=== PATIENT | female | born 1955 | race Caucasian/White ===

== ENCOUNTER 2020-05-20 11:59 | Outpatient (REF) | payer MEDICARE, SELFPAY ==
--- NOTE | 2020-05-20 12:04 | MM_ITS ---
EXAMINATION: MM SCREENING DIGITAL BREAST TOMOSYNTHESIS, BILATERAL CLINICAL INFORMATION: Screening. Asymptomatic. The lifetime risk of breast cancer based on the Tyrer-Cuzick Model is 6%. COMPARISON: Mammography: 02/18/2019, 02/05/2019, 01/08/2018, 10/08/2016 TECHNIQUE: Digital breast tomosynthesis is performed in both the craniocaudal and mediolateral oblique views along with computer-aided detection (CAD). Synthesized 2D images are generated from the tomosynthesis. Additional exaggerated right CC view is provided. FINDINGS: There are scattered areas of fibroglandular density (ACR BI-RADS breast composition Category b). There are no significant masses, abnormal calcifications, or other abnormalities. The axilla and skin contours are unremarkable. MM/MM tomosynthesis screening BI IMPRESSION: No mammographic evidence of malignancy. ASSESSMENT: BI-RADS 1: Negative RECOMMENDATION: Routine annual mammography screening. This patient's information was entered into a reminder system with a target due date for their next mammogram.
== END 2020-05-20 12:00 | disposition home or self-care (01) ==
LOC: HO.MAMMO 11:59
PROVIDERS: Visit Provider Internal Medicine
DX: Z12.31 Encounter for screening mammogram for malignant neoplasm of breast (principal)
CPT/HCPCS: 77063; 77067

== ENCOUNTER 2020-06-30 10:29 | Outpatient (REF) | payer MEDICARE, SELFPAY ==
[2020-06-30 13:59] LABS: MANUAL DIFF FLAG NO
[2020-06-30 14:04] LABS: Eosinophils Absolute Auto 0.1 X10*3/uL (0.0-0.4); Eosinophils Percent Auto 2.4 % (0-4); Hematocrit 40.8 % (37-47); Hemoglobin 13.4 g/dl (12.0-16.0); Imm Gran Abs Auto 0.01 X10*3/uL (0.00-0.03); Imm Gran Pct Auto 0.2 % (0.0-0.4); Lymphocytes Absolute Auto 1.2 X10*3/uL (1.2-4.9); Lymphocytes Percent Auto 27.5 % (20-40); Mean Corpuscular HGB Conc 32.8 g/dl (31.0-35.0); Mean Corpuscular Hemoglobin 28.8 pg (27.0-33.0); Mean Corpuscular Volume 87.6 fL (80-98); Mean Platelet Volume 10.3 fL (9.4-12.3); Monocytes Absolute Auto 0.4 X10*3/uL (0.1-1.2); Monocytes Percent Auto 9.1 % (2-11); Neutrophils Absolute Auto 2.5 X10*3/uL (2.0-8.3); Neutrophils Percent Auto 59.8 % (45-73); Platelet Count 302 X10*3/uL (160-400); Red Blood Count 4.66 X10*6/uL (4.20-5.50); Red Cell Distribution Width 14.3 % (11.0-16.0); White Blood Count 4.2 X10*3/uL (4.8-10.8)
[2020-06-30 14:32] LABS: Alanine Aminotransferase 33 U/L (0-31); Albumin Level 4.5 g/dL (3.5-5.0); Alkaline Phosphatase 77 U/L (39-117); Anion Gap 13 (12-20); Aspartate Amino Transferase 31 U/L (5-31); Bilirubin Total 0.8 mg/dL (0.0-1.0); Blood Urea Nitrogen 12 mg/dL (9-16); Calcium 9.4 mg/dL (8.4-10.2); Carbon Dioxide 28 mmol/L (22-29); Chloride 105 mmol/L (96-108); Cholesterol 260 mg/dL; Estimated Glomerular Filt Rate > 60; Glucose Fasting 89 mg/dL (60-99); HDL Cholesterol 74 mg/dL; LDL Cholesterol Calculated 164 mg/dl; Potassium 4.4 mmol/L (3.3-5.1); Sodium 142 mmol/L (135-145); Triglycerides 114 mg/dL
[2020-06-30 14:35] LABS: Glucose Urine UA NEG (NEG); Leukocyte Esterase Urine NEG (NEG); Nitrite Urine NEG (NEG); PH 5.5 (5.0-8.0); Specific Gravity - Urine 1.025 (1.005-1.025); Urine Blood NEG (NEG); Urine Ketones NEG (NEG); Urine Protein NEG (NEG-TRACE)
[2020-06-30 14:38] LABS: Appearance Urine CLEAR; Color Urine YELLOW
[2020-06-30 14:55] LABS: Vitamin D 25-OH Total 31.4 ng/mL (>30)
== END 2020-06-30 10:30 | disposition home or self-care (01) ==
LOC: HO.HMGCLDS 10:29
PROVIDERS: PCP Internal Medicine; Visit Provider Internal Medicine
DX: Z00.00 Encounter for general adult medical examination without abnormal findings (principal); Z13.220 Encounter for screening for lipoid disorders; J30.1 Allergic rhinitis due to pollen; E78.00 Pure hypercholesterolemia, unspecified
CPT/HCPCS: 36415; 80053; 80061; 81003; 82306; 85025

== ENCOUNTER 2020-07-04 14:22 | Outpatient (REF) | payer MEDICARE, SELFPAY ==
--- NOTE | ~2020-07-04 | XR_ITS ---
EXAMINATION: XR CHEST CLINICAL INFORMATION: Fiberglass exposure. COMPARISON: None TECHNIQUE: 2 views of the chest were obtained. FINDINGS: The lungs are well-expanded and clear of acute process. The heart size and pulmonary vascularity is normal. There is mild scoliosis of dorsal spine. No lytic process seen. XR/XR chest 2V IMPRESSION: Unremarkable chest exam.
== END 2020-07-04 14:23 | disposition home or self-care (01) ==
LOC: HO.XRAY 14:22
PROVIDERS: PCP Internal Medicine; Visit Provider Internal Medicine
DX: T65.831A Toxic effect of fiberglass, accidental (unintentional), initial encounter (principal)
CPT/HCPCS: 71046

== ENCOUNTER → 2020-07-12 13:21 | Outpatient (BNVA) | payer MEDICARE, SELFPAY | PROVIDERS: Visit Provider Obstetrics & Gynecology ==

== ENCOUNTER 2020-07-19 13:19 | Outpatient (REF) | payer MEDICARE, SELFPAY ==
--- NOTE | ~2020-07-19 | MM_ITS ---
EXAMINATION: BONE DENSITOMETRY CLINICAL INDICATION: Other specified personal risk factors. COMPARISON: None (current study represents initial baseline exam). TECHNIQUE: Using a Proximus DXA System (software version: 13.1) manufactured by [employer], dual-energy x-ray absorptiometry was performed of the lumbar spine and left hip. The images are of good technical quality. Summary results are attached. FINDINGS: AP SPINE L1-L4: BMD 1.020 g/cm2, Z-score 0.2, T-score -1.3, osteopenia. LEFT FEMUR, NECK: BMD 0.947 g/cm2, Z-score 0.8, T-score -0.7, normal. LEFT FEMUR, TOTAL: BMD 1.098 g/cm2, Z-score 1.9, T-score 0.7, normal. IDENTIFIED RISK FACTORS: Menopause, history of fracture (adult). HISTORY OF FRACTURE: Wrist. MEDICATIONS: Calcium supplements or multivitamin, vitamin D. MM/XR DEXA axial skeleton IMPRESSION: 1. DIAGNOSIS: Osteopenia based on the lowest T-score value of -1.3 in the lumbar spine applying World Health Organization criteria. 2. 10-YEAR FRACTURE RISK PREDICTION, FRAX: Major osteoporotic fracture (clinical spine, forearm, hip or shoulder) 12.9%. Hip fracture 0.8%. 3. Treatment Recommendations: NOF guidelines recommend consideration for treatment in postmenopausal women and men age 50 and older presenting with the following: -A hip or vertebral (clinical or morphometric) fracture. -T-score less than or equal to -2.5 at the femoral neck or spine after appropriate evaluation to exclude secondary causes. -Low bone mass at the hip or spine and a 10-year fracture probability by FRAX of greater than or equal to 3% for hip fracture or greater than or equal to 20% for major osteoporotic fracture based on the [place] adapted WHO algorithm. 4. Other Recommendations: All treatment decisions require clinical judgment and consideration of individual patient factors, including patient preferences, comorbidities, previous drug use, risk factors not captured in the FRAX model (e.g. frailty, falls, vitamin D deficiency, increased bone turnover, interval significant decline in bone density) and possible under or overestimation of fracture risk by FRAX. Additional medical evaluation for secondary cause of low bone mineral density may be appropriate. FUTURE SCAN RECOMMENDATION: People with diagnosed cases of osteoporosis or at high risk for fracture should have regular bone mineral density tests. For patients eligible for Medicare, routine testing is allowed once every 2 years. The testing frequency can be increased to one year for patients who have rapidly progressing disease, those who are receiving or discontinuing medical therapy to restore bone mass, or have additional risk factors.
== END 2020-07-19 13:20 | disposition home or self-care (01) ==
LOC: HO.MAMMO 13:19
PROVIDERS: PCP Internal Medicine; Visit Provider Obstetrics & Gynecology
DX: Z13.820 Encounter for screening for osteoporosis (principal); Z78.0 Asymptomatic menopausal state; Z79.899 Other long term (current) drug therapy
CPT/HCPCS: 77080

== ENCOUNTER 2021-06-20 14:21 | Outpatient (REF) | payer MEDICARE, SELFPAY ==
--- NOTE | ~2021-06-20 | MM_ITS ---
EXAMINATION: MM SCREENING DIGITAL BREAST TOMOSYNTHESIS, BILATERAL CLINICAL INFORMATION: Screening. Asymptomatic. The lifetime risk of breast cancer based on the Tyrer-Cuzick Model is 5%. COMPARISON: Mammography: 05/20/2020, 02/18/2019, 02/05/2019, 01/08/2018 TECHNIQUE: Digital breast tomosynthesis is performed in both the craniocaudal and mediolateral oblique views along with computer-aided detection (CAD). Synthesized 2D images are generated from the tomosynthesis. Additional left MLO view is provided. FINDINGS: There are scattered areas of fibroglandular density (ACR BI-RADS breast composition Category b). There are no significant masses, abnormal calcifications, or other abnormalities. No developing density or interval architectural abnormality. No significant changes. MM/MM tomosynthesis screening BI IMPRESSION: No mammographic evidence of malignancy. ASSESSMENT: BI-RADS 1: Negative RECOMMENDATION: Routine annual mammography screening. This patient's information was entered into a reminder system with a target due date for their next mammogram.
== END 2021-06-20 14:22 | disposition home or self-care (01) ==
LOC: HO.MAMMO 14:21
PROVIDERS: PCP Internal Medicine; Visit Provider Internal Medicine
DX: Z12.31 Encounter for screening mammogram for malignant neoplasm of breast (principal)
CPT/HCPCS: 77063; 77067

== ENCOUNTER → 2021-08-04 12:53 | Outpatient (BNVA) | payer MEDICARE, SELFPAY | PROVIDERS: PCP Internal Medicine; Visit Provider Advanced Practice Midwife | DX: Z01.419 Encounter for gynecological examination (general) (routine) without abnormal findings (principal) ==

== ENCOUNTER 2021-08-09 13:47 | Outpatient (REF) | payer MEDICARE, SELFPAY ==
[2021-08-09 16:25] LABS: MANUAL DIFF FLAG NO
[2021-08-09 16:39] LABS: Appearance Urine CLEAR; Color Urine YELLOW; Glucose Urine UA NEG (NEG); Leukocyte Esterase Urine NEG (NEG); Nitrite Urine NEG (NEG); PH 5.5 (5.0-8.0); Specific Gravity - Urine <= 1.005 (1.005-1.025); Urine Blood NEG (NEG); Urine Ketones NEG (NEG); Urine Protein NEG (NEG-TRACE)
[2021-08-09 16:43] LABS: Basophils Percent Auto 0.5 % (0-2); Eosinophils Absolute Auto 0.1 X10*3/uL (0.0-0.4); Eosinophils Percent Auto 1.5 % (0-4); Hematocrit 44.4 % (37.0-47.0); Imm Gran Abs Auto 0.02 X10*3/uL (0.00-0.03); Imm Gran Pct Auto 0.3 % (0.0-0.4); Lymphocytes Absolute Auto 1.4 X10*3/uL (1.2-4.9); Lymphocytes Percent Auto 24.4 % (20-40); Mean Corpuscular HGB Conc 33.8 g/dl (31.0-35.0); Mean Corpuscular Hemoglobin 30.2 pg (27.0-33.0); Mean Corpuscular Volume 89.5 fL (80.0-98.0); Mean Platelet Volume 10.2 fL (9.4-12.3); Monocytes Absolute Auto 0.4 X10*3/uL (0.1-1.2); Monocytes Percent Auto 7.4 % (2-11); Neutrophils Absolute Auto 3.9 x10*3/uL (2.0-8.3); Neutrophils Percent Auto 65.9 % (45-73); Platelet Count 247 X10*3/uL (160-400); Red Blood Count 4.96 X10*6/uL (4.20-5.50); White Blood Count 5.9 X10*3/uL (4.8-10.8)
[2021-08-09 17:03] LABS: Alanine Aminotransferase 22 U/L (0-31); Albumin Level 4.3 g/dL (3.5-5.0); Alkaline Phosphatase 76 U/L (39-117); Anion Gap 14 (12-20); Aspartate Amino Transferase 25 U/L (5-31); Bilirubin Total 0.9 mg/dL (0.0-1.0); Blood Urea Nitrogen 11 mg/dL (9-16); Calcium 9.9 mg/dL (8.4-10.2); Carbon Dioxide 27 mmol/L (22-29); Chloride 101 mmol/L (96-108); Cholesterol 270 mg/dL; Estimated Glomerular Filt Rate > 60; Glucose Fasting 85 mg/dL (60-99); HDL Cholesterol 70 mg/dL; LDL Cholesterol Calculated 174 mg/dl; Potassium 4.2 mmol/L (3.3-5.1); Sodium 138 mmol/L (135-145); Triglycerides 134 mg/dL
[2021-08-09 17:26] LABS: Vitamin D 25-OH Total 32.5 ng/mL (>30)
== END 2021-08-09 13:48 | disposition home or self-care (01) ==
LOC: HO.HMGCLDS 13:47
PROVIDERS: PCP Internal Medicine; Visit Provider Internal Medicine
DX: Z00.00 Encounter for general adult medical examination without abnormal findings (principal); K21.9 Gastro-esophageal reflux disease without esophagitis; J30.1 Allergic rhinitis due to pollen
CPT/HCPCS: 36415; 80053; 80061; 81003; 82306; 85025

== ENCOUNTER 2021-11-22 10:00 | Outpatient (REF) | payer MEDICARE, SELFPAY ==
[2021-11-22 12:01] LABS: Alanine Aminotransferase 24 U/L (0-31); Aspartate Amino Transferase 26 U/L (5-31); Cholesterol 165 mg/dL; HDL Cholesterol 70 mg/dL; LDL Cholesterol Calculated 78 mg/dl; Triglycerides 89 mg/dL
== END 2021-11-22 10:01 | disposition home or self-care (01) ==
LOC: HO.HMGCLDS 10:00
PROVIDERS: Visit Provider Internal Medicine
DX: I25.10 Atherosclerotic heart disease of native coronary artery without angina pectoris (principal); E78.00 Pure hypercholesterolemia, unspecified; R53.83 Other fatigue
CPT/HCPCS: 36415; 80061; 82550; 84450; 84460

== ENCOUNTER 2022-06-26 14:34 | Outpatient (REF) | payer MEDICARE, SELFPAY ==
--- NOTE | ~2022-06-26 | MM_ITS ---
EXAMINATION: MM SCREENING DIGITAL BREAST TOMOSYNTHESIS, BILATERAL CLINICAL INFORMATION: Screening. Asymptomatic. Status post previous left breast biopsy The lifetime risk of breast cancer based on the Tyrer-Cuzick Model is 5.1%. COMPARISON: Mammography: June 20, 2021 and studies dating back to August 24, 2015 TECHNIQUE: Digital breast tomosynthesis is performed in both the craniocaudal and mediolateral oblique views along with computer-aided detection (CAD). Synthesized 2D images are generated from the tomosynthesis. FINDINGS: There are scattered areas of fibroglandular density (ACR BI-RADS breast composition Category b). There are no significant masses, abnormal calcifications, or other abnormalities. MM/MM tomosynthesis screening BI IMPRESSION: No significant changes from prior exam. ASSESSMENT: BI-RADS 1: Negative RECOMMENDATION: Routine annual mammography screening. This patient's information was entered into a reminder system with a target due date for their next mammogram.
== END 2022-06-26 14:35 | disposition home or self-care (01) ==
LOC: HO.MAMMO 14:34
PROVIDERS: Visit Provider Internal Medicine
DX: Z12.31 Encounter for screening mammogram for malignant neoplasm of breast (principal)
CPT/HCPCS: 77063; 77067

== ENCOUNTER 2022-09-20 10:32 | Outpatient (REF) | payer MEDICARE, SELFPAY ==
[2022-09-20 11:21] LABS: MANUAL DIFF FLAG NO
[2022-09-20 11:38] LABS: Basophils Percent Auto 0.7 % (0-2); Eosinophils Absolute Auto 0.1 X10*3/uL (0.0-0.4); Eosinophils Percent Auto 2.4 % (0-4); Hematocrit 39.5 % (37.0-47.0); Hemoglobin 13.4 g/dl (12.0-16.0); Imm Gran Abs Auto 0.01 X10*3/uL (0.00-0.03); Imm Gran Pct Auto 0.2 % (0.0-0.4); Lymphocytes Percent Auto 23.9 % (20-40); Mean Corpuscular HGB Conc 33.9 g/dl (31.0-35.0); Mean Corpuscular Hemoglobin 30.5 pg (27.0-33.0); Mean Corpuscular Volume 89.8 fL (80.0-98.0); Mean Platelet Volume 9.9 fL (9.4-12.3); Monocytes Absolute Auto 0.3 X10*3/uL (0.1-1.2); Monocytes Percent Auto 7.6 % (2-11); Neutrophils Absolute Auto 2.8 x10*3/uL (2.0-8.3); Neutrophils Percent Auto 65.2 % (45-73); Platelet Count 244 X10*3/uL (160-400); Red Cell Distribution Width 13.3 % (11.0-16.0); White Blood Count 4.2 X10*3/uL (4.8-10.8)
[2022-09-20 12:15] LABS: Alanine Aminotransferase 20 U/L (0-31); Albumin Level 4.2 g/dL (3.5-5.0); Alkaline Phosphatase 68 U/L (39-117); Anion Gap 9 (12-20); Aspartate Amino Transferase 22 U/L (5-31); Bilirubin Total 1.2 mg/dL (0.0-1.0); Blood Urea Nitrogen 16 mg/dL (9-16); Calcium 9.5 mg/dL (8.4-10.2); Carbon Dioxide 30 mmol/L (22-29); Chloride 106 mmol/L (96-108); Cholesterol 160 mg/dL; Estimated Glomerular Filt Rate > 60; Glucose Fasting 87 mg/dL (60-99); HDL Cholesterol 66 mg/dL; LDL Cholesterol Calculated 76 mg/dl; Potassium 4.3 mmol/L (3.3-5.1); Sodium 141 mmol/L (135-145); Total Protein 6.4 g/dL (6.5-8.0); Triglycerides 90 mg/dL
== END 2022-09-20 10:33 | disposition home or self-care (01) ==
LOC: HO.HMGCLDS 10:32
PROVIDERS: PCP Internal Medicine; Visit Provider Internal Medicine
DX: Z00.00 Encounter for general adult medical examination without abnormal findings (principal); M81.0 Age-related osteoporosis without current pathological fracture
CPT/HCPCS: 36415; 80053; 80061; 82306; 85025

== ENCOUNTER 2022-10-16 12:11 | Outpatient (REF) | payer MEDICARE, SELFPAY ==
--- NOTE | ~2022-10-16 | XR_ITS ---
EXAMINATION: 1. RADIOGRAPHS RIGHT KNEE 2. RADIOGRAPHS LEFT KNEE CLINICAL INFORMATION: Pain after trauma COMPARISON: Bilateral knee x-rays 01/23/2016 TECHNIQUE: 4 views of each knee were obtained. FINDINGS: Right knee: No fracture or dislocation. No suprapatellar joint effusion. Joint spaces are well-maintained. Tiny tricompartmental marginal osteophytes. No focal soft tissue swelling of the anterior knee. Left knee: No fracture or dislocation. Tiny suprapatellar joint effusion. Minimal narrowing of the medial joint space height. Small tricompartmental marginal osteophytes. No focal soft tissue swelling of the anterior knee. XR/XR knee RT 4V IMPRESSION: 1. Mild degenerative changes of both knees, slightly more prominent on the left. 2. Tiny left suprapatellar joint effusion.
--- NOTE | ~2022-10-16 | XR_ITS ---
EXAMINATION: 1. RADIOGRAPHS RIGHT KNEE 2. RADIOGRAPHS LEFT KNEE CLINICAL INFORMATION: Pain after trauma COMPARISON: Bilateral knee x-rays 01/23/2016 TECHNIQUE: 4 views of each knee were obtained. FINDINGS: Right knee: No fracture or dislocation. No suprapatellar joint effusion. Joint spaces are well-maintained. Tiny tricompartmental marginal osteophytes. No focal soft tissue swelling of the anterior knee. Left knee: No fracture or dislocation. Tiny suprapatellar joint effusion. Minimal narrowing of the medial joint space height. Small tricompartmental marginal osteophytes. No focal soft tissue swelling of the anterior knee. XR/XR knee LT 4V IMPRESSION: 1. Mild degenerative changes of both knees, slightly more prominent on the left. 2. Tiny left suprapatellar joint effusion.
== END 2022-10-16 12:12 | disposition home or self-care (01) ==
LOC: HO.XRAY 12:11
PROVIDERS: PCP Internal Medicine; Visit Provider Internal Medicine
DX: M25.562 Pain in left knee (principal); M25.561 Pain in right knee
CPT/HCPCS: 73564

== ENCOUNTER 2022-11-15 13:54 | Outpatient (AMB) | payer MEDICARE, SELFPAY ==
--- NOTE | 2022-11-15 13:58 | MHC.OFFVIS ---
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 Scribed for SMITA Galeano by Ellyn Cordon, medical services coordinator, on 11/15/2022 at 2:22 pm EST. Cullet Trucker: Cullet Trucker Present (Luh) Allergies dust,pollen Allergy (Unknown, Uncoded 11/15/22 14:00) unknown Roxicet Allergy (Unknown, Uncoded 11/15/22 14:00) rash HPI HPI Comments History of Present Illness Details She is a postmenopausal woman presenting for annual exam. Doing well with no physician internist concerns. Patient admits she tries to eat a healthy diet including Calcium and Vitamin D. She stays active with exercise. 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 Currently not sexually active. Denies vaginal itching and irritation. Denies family hx of breast, colon and ovarian cancer. Last pap smear 09/18/18 Last mammogram 06/26/22 UTD on colonoscopy. [facility] Medical History (Updated 11/15/22 @ 15:16 by Ellyn Cordon) Basal cell carcinoma (BCC) in situ of skin High cholesterol Osteopenia Surgical History H/O cone biopsy of cervix H/O left wrist surgery History of breast biopsy History of History of knee surgery Social History Alcohol intake: current Alcohol intake frequency: a few times a month Alcohol type: wine Patient Tobacco Use Status: Never used Tobacco Gender identity: Female Female Reproductive History Menstrual Age of Menarche: 11 Total pregnancies: 1 Full term: 1 Date of last pap smear: 09/18/18 (neg pap and hpv) Date of Mammogram: 06/26/22 Physical Exam Vital Signs: Last Vital Signs BP 142/84 H 11/15/22 14:00 BMI result Body Mass Index 26.0 Const General: cooperative, healthy appearing, no acute distress, well developed and alert Orientation/consciousness: patient oriented x3 HEENT Head: Yes normal to inspection Eyes General: appearance normal, both eyes and all related structures Neck Neck: Yes normal visual inspection Thyroid: Thyroid normal Chest Chest palpation & inspection: normal inspection of the chest Breast/axilla inspection: normal inspection of the breasts (no puckering, dimpling, peau de orange, retraction, discharge, masses) Breast/axilla palpation: normal palpation of the breasts Resp Effort & Inspection: normal respiratory effort GI Inspection: Yes normal to inspection Palpation (GI): Soft to palpation (to palpation) Rectal Exam - Female: deferred General: Yes bladder normal to inspection External Female Exam: normal external appearance and normal appearance of the urethra Speculum Exam - Vagina: normal appearance of the vagina, normal palpation and vagina atrophic (moderate) Speculum Exam - Cervix: normal appearance of the cervix and normal palpation Bimanual exam- vagina & uterus: normal palpation and normal palpation Bimanual Exam- Adnexa, other: normal adnexae and no masses Skin General skin exam: no rashes or lesions noted Neuro General: patient oriented x3 Cognition (Neuro): normal cognition Extrem General: Yes normal to inspection Psych Attitude: cooperative Thought process: Normal thought process present Thought content: Normal thought content present Assessment & Plan Assessment & Plan (1) Encounter for well woman exam: Code(s): Z01.419 - Encounter for gynecological examination (general) (routine) without abnormal findings Plan: Discussed: Current recommendations for pap smears per ASCCP guidelines. Breast awareness and periodic self breast exams. Encouraged yearly mammograms. Maintaining a healthy lifestyle including a well balanced diet including Calcium and Vitamin D and routine exercise. Recommend continue use of skin UV protection techniques. Bone density ordered. Contact office with any PMB. All of her questions and concerns were addressed to the best of my ability RTO in 1 year for AG. (2) Osteopenia: Code(s): M85.80 - Other specified disorders of bone density and structure, unspecified site (3) Basal cell carcinoma (BCC) in situ of skin: Code(s): D04.9 - Carcinoma in situ of skin, unspecified Orders: Orders XR DEXA axial skeleton Today M85.80 - Other specified disorders of bone density and structure, unspecified site, Z78.0 - Asymptomatic menopausal state Coding Level of Care Code Est Pt Prev Care >65y(69516) Diagnoses Encounter for well woman exam Z01.419 Osteopenia M85.80 Basal cell carcinoma (BCC) in situ of skin D04.9
[2022-11-15 14:00] VITALS: BP 142/84; BMI 26.0
== END 2022-11-15 14:40 | disposition home or self-care (01) ==
LOC: HO.HWS 13:54
PROVIDERS: PCP Internal Medicine; Visit Provider Advanced Practice Midwife
DX: Z01.419 Encounter for gynecological examination (general) (routine) without abnormal findings (principal); M85.80 Other specified disorders of bone density and structure, unspecified site; D04.9 Carcinoma in situ of skin, unspecified
CPT/HCPCS: 99213; 99397; G0101

== ENCOUNTER → 2022-11-15 13:54 | Outpatient (BNVA) | payer MEDICARE, SELFPAY | PROVIDERS: PCP Internal Medicine; Visit Provider Advanced Practice Midwife ==

== ENCOUNTER 2022-11-23 08:02 | Outpatient (AMB) | payer MEDICARE, SELFPAY ==
[2022-11-23 08:16] VITALS: BMI 26.4
--- NOTE | 2022-11-23 08:16 | MHC.OFFVIS ---
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 Allergies dust,pollen Allergy (Unknown, Uncoded 11/23/22 08:31) unknown Roxicet Allergy (Unknown, Uncoded 11/23/22 08:31) rash Medication List - Last Reconciled 11/23/22 by Hebert Hernandez MD B-complex with vitamin C 1 cap PO DAILY cholecalciferol (vitamin D3) 50 mcg PO DAILY lactobacillus combination no.4 (Probiotic) 3,000 mmu cells PO DAILY loratadine (Allergy Relief (loratadine)) 10 mg PO DAILY multivitamin 1 tab PO DAILY [id number]-fish oil-vit D3 120 mg-180 mg -1,000 unit caps PO rosuvastatin 10 mg PO DAILY PFSH Medical History Basal cell carcinoma (BCC) in situ of skin High cholesterol Osteopenia Surgical History H/O cone biopsy of cervix H/O left wrist surgery History of breast biopsy History of History of knee surgery Social History Alcohol intake: current Alcohol intake frequency: a few times a month Alcohol type: wine Patient Tobacco Use Status: Never used Tobacco Gender identity: Female Female Reproductive History Menstrual Age of Menarche: 11 Physical Exam Vital Signs: BMI result Body Mass Index 26.4 Assessment & Plan Assessment & Plan Orders: Orders XR knee LT 3V Today M17.12 - Unilateral primary osteoarthritis, left knee XR knee RT 3V Today M25.561 - Pain in right knee Coding Diagnoses
--- NOTE | 2022-11-23 08:23 | A.OFFVIS_ITS ---
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 States she slide and fell down at home about 2 months ago. Patient describes how she fell down, reports her knee went the opposite way. Seen at a walk in clinic same day where xays were taken and was told she was negative for fracture. Also seen with her PCP who referred patient to orthopedics. Currently states her knee pain has improved but pain is triggered with stair climbing , pivoting and over use of knee. Hx of torn rt knee meniscus surgery with Dr. Wilkes. She also reports mild intermittent discomfort in her right knee because she has been favoring her left knee. She continues to exercise at the [facility]. She also walks her dog for exercise. Allergies dust,pollen Allergy (Unknown, Uncoded 11/23/22 08:31) unknown Roxicet Allergy (Unknown, Uncoded 11/23/22 08:31) rash Medication List - Last Reconciled 11/23/22 by Hebert Hernandez MD B-complex with vitamin C 1 cap PO DAILY cholecalciferol (vitamin D3) 50 mcg PO DAILY lactobacillus combination no.4 (Probiotic) 3,000 mmu cells PO DAILY loratadine (Allergy Relief (loratadine)) 10 mg PO DAILY multivitamin 1 tab PO DAILY [id number]-fish oil-vit D3 120 mg-180 mg -1,000 unit caps PO rosuvastatin 10 mg PO DAILY [facility] Medical History Basal cell carcinoma (BCC) in situ of skin High cholesterol Osteopenia Surgical History H/O cone biopsy of cervix H/O left wrist surgery History of breast biopsy History of History of knee surgery Social History Alcohol intake: current Alcohol intake frequency: a few times a month Alcohol type: wine Patient Tobacco Use Status: Never used Tobacco Gender identity: Female Female Reproductive History Menstrual Age of Menarche: 11 Physical Exam Vital Signs: BMI result Body Mass Index 26.4 Const Other: Well-nourished well-developed very friendly female awake alert and oriented x3 in no acute distress Extrem Other: Bilateral lower extremity examination shows good capillary refill, no skin lesions noted, normal sensation light touch Bilateral knee examination shows minimal effusions, minimal crepitus with range of motion, tenderness along her medial joint lines, no instability Results Reviewed Results Reviewed: X-rays of the patient's bilateral knees taken on 10/16/2022 show mild diffuse joint space narrowing, no acute bony abnormalities Assessment & Plan Assessment & Plan (1) Right knee pain: Code(s): M25.561 - Pain in right knee Plan: Ms. Cabral presents with intermittent discomfort in both of her knees due to possible medial collateral ligament strain, possible meniscus tearing and early degenerative joint disease. I had a lengthy discussion with the patient regarding the treatment options. At this point the patient's symptoms seem to be improving with activity modifications. We will hold off on a cortisone injection or an MRI. She will follow up with me on an as-needed basis should her symptoms worsen in any way. Feel free to call me at any time should questions regarding her orthopedic management arise. Thank you very much for asking me to see this very friendly patient. I spent 21 minutes in reviewing the patient's records and imaging studies, seeing the patient and documenting in the medical record. (2) Left knee pain: Code(s): M25.562 - Pain in left knee Orders: Orders XR knee LT 3V Today M17.12 - Unilateral primary osteoarthritis, left knee XR knee RT 3V Today M25.561 - Pain in right knee Coding Level of Care Code Est Pt Level 2 (56948) Diagnoses Right knee pain M25.561 Left knee pain M25.562
== END 2022-11-23 08:49 | disposition home or self-care (01) ==
PROVIDERS: PCP Internal Medicine; Visit Provider Orthopaedic Surgery
DX: M25.561 Pain in right knee (principal); M25.562 Pain in left knee
CPT/HCPCS: 99212

== ENCOUNTER 2022-11-23 10:34 | Outpatient (REF) | payer MEDICARE, SELFPAY | END 2022-11-23 10:35 | disposition home or self-care (01) | LOC: HO.HOSX 10:34 | PROVIDERS: Visit Provider Orthopaedic Surgery | DX: M17.12 Unilateral primary osteoarthritis, left knee (principal); M25.561 Pain in right knee; Z79.899 Other long term (current) drug therapy | CPT/HCPCS: 99212 ==

== ENCOUNTER → 2022-11-28 13:30 | Outpatient (BNV) | payer MEDICARE, SELFPAY | PROVIDERS: PCP Internal Medicine; Visit Provider Radiology Diagnostic Radiology | DX: M85.80 Other specified disorders of bone density and structure, unspecified site (principal) | CPT/HCPCS: 77080 ==

== ENCOUNTER 2022-11-28 13:35 | Outpatient (REF) | payer MEDICARE, SELFPAY ==
--- NOTE | ~2022-11-28 | MM_ITS ---
EXAMINATION: BONE DENSITOMETRY CLINICAL INDICATION: Other specified disorders of bone density in structure, unspecified site. COMPARISON: Baseline BD dated 07/19/2020. TECHNIQUE: Using a [employer] DXA System (software version: 13.1) manufactured by [employer], dual-energy x-ray absorptiometry was performed of the lumbar spine and left hip. The images are of good technical quality. Summary results are attached. FINDINGS: LEFT FEMUR, NECK: Current: BMD 0.902 g/cm2, Z-score 0.6, T-score -1.0, normal. Baseline: BMD 0.947 g/cm2. LEFT FEMUR, TOTAL: Current: BMD 1.099 g/cm2, Z-score 2.1, T-score 0.7, normal, 0.1% increase from baseline (<5% change is not significant). Baseline: BMD 1.098 g/cm2. AP SPINE L1-L4: Current: BMD 1.075 g/cm2, Z-score 0.7, T-score -0.9, normal, 5.4% increase from baseline (<5% change is not significant). Baseline: BMD 1.020 g/cm2. IDENTIFIED RISK FACTORS: History of fracture (adult), menopause. HISTORY OF FRACTURE: Wrist. MEDICATIONS: Multivitamin, vitamin D. MM/XR DEXA axial skeleton IMPRESSION: 1. DIAGNOSIS: Normal bone density based on the lowest T-score value of -1.0 in the femoral neck applying World Health Organization criteria. 2. 10-YEAR FRACTURE RISK PREDICTION, FRAX: According to the guidelines, FRAX calculation should only be performed on patients in the osteopenia bone density category. Therefore, FRAX was not performed on this patient. 3. Treatment Recommendations: NOF guidelines recommend consideration for treatment in postmenopausal women and men age 50 and older presenting with the following: -A hip or vertebral (clinical or morphometric) fracture. -T-score less than or equal to -2.5 at the femoral neck or spine after appropriate evaluation to exclude secondary causes. -Low bone mass at the hip or spine and a 10-year fracture probability by FRAX of greater than or equal to 3% for hip fracture or greater than or equal to 20% for major osteoporotic fracture based on the [place] adapted WHO algorithm. 4. Other Recommendations: All treatment decisions require clinical judgment and consideration of individual patient factors, including patient preferences, comorbidities, previous drug use, risk factors not captured in the FRAX model (e.g. frailty, falls, vitamin D deficiency, increased bone turnover, interval significant decline in bone density) and possible under or overestimation of fracture risk by FRAX. FUTURE SCAN RECOMMENDATION: People with diagnosed cases of osteoporosis or at high risk for fracture should have regular bone mineral density tests. For patients eligible for Medicare, routine testing is allowed once every 2 years. The testing frequency can be increased to one year for patients who have rapidly progressing disease, those who are receiving or discontinuing medical therapy to restore bone mass, or have additional risk factors.
== END 2022-11-28 13:36 | disposition home or self-care (01) ==
LOC: HO.MAMMO 13:35
PROVIDERS: PCP Internal Medicine; Visit Provider Advanced Practice Midwife
DX: M85.80 Other specified disorders of bone density and structure, unspecified site (principal); Z78.0 Asymptomatic menopausal state
CPT/HCPCS: 77080

== ENCOUNTER 2023-07-02 12:52 | Outpatient (REF) | payer MEDICARE, SELFPAY | END 2023-07-02 12:53 | disposition home or self-care (01) | LOC: HO.MAMMO 12:52 | PROVIDERS: PCP Internal Medicine; Visit Provider Internal Medicine | DX: Z12.31 Encounter for screening mammogram for malignant neoplasm of breast (principal) | CPT/HCPCS: 77063; 77067 ==

== ENCOUNTER → 2023-07-02 13:00 | Outpatient (BNV) | payer MEDICARE, SELFPAY | PROVIDERS: PCP Internal Medicine; Visit Provider Radiology Diagnostic Radiology | DX: Z12.31 Encounter for screening mammogram for malignant neoplasm of breast (principal) | CPT/HCPCS: 77063; 77067 ==

== ENCOUNTER 2023-08-19 10:01 | Outpatient (REF) | payer MEDICARE, SELFPAY ==
--- NOTE | ~2023-08-19 | XR_ITS ---
EXAMINATION: XR HAND, LEFT CLINICAL INFORMATION: Left hand finger injury. Left hand pain, sprain. COMPARISON: 09/22/2015, 06/14/2015. TECHNIQUE: PA, lateral, and oblique views of the left hand. FINDINGS: Interval removal of previously identified plate and screw fixation from the distal radius. Cystic lucencies in the distal radius likely related to prior instrumentation. Narrowing of the radiocarpal joint with degenerative changes. Scattered cystic lucencies in carpal bones. Bony demineralization redemonstrated. Moderate degenerative changes in the first carpometacarpal joint with joint space narrowing and hypertrophic change. Mild degenerative changes in the second and third DIP joints. XR/XR hand LT min 3V IMPRESSION: 1. Interval removal of previously identified plate and screw fixation from the distal radius. Cystic lucencies in the distal radius are compatible with prior instrumentation. 2. Moderate degenerative changes in the first carpometacarpal joint. 3. Mild degenerative changes in the second and third DIP joints. 4. No displaced fracture appreciated. Recommend follow-up imaging in 10-14 days if fracture is suspected.
[2023-08-19 10:36] LABS: MANUAL DIFF FLAG NO
[2023-08-19 10:54] LABS: Basophils Percent Auto 0.8 % (0-2); Eosinophils Absolute Auto 0.1 X10*3/uL (0.0-0.4); Eosinophils Percent Auto 3.3 % (0-4); Hematocrit 44.8 % (37.0-47.0); Imm Gran Abs Auto 0.01 X10*3/uL (0.00-0.03); Imm Gran Pct Auto 0.3 % (0.0-0.4); Lymphocytes Absolute Auto 1.2 X10*3/uL (1.2-4.9); Lymphocytes Percent Auto 30.5 % (20-40); Mean Corpuscular HGB Conc 33.5 g/dl (31.0-35.0); Mean Corpuscular Hemoglobin 29.9 pg (27.0-33.0); Mean Corpuscular Volume 89.2 fL (80.0-98.0); Mean Platelet Volume 9.5 fL (9.4-12.3); Monocytes Absolute Auto 0.3 X10*3/uL (0.1-1.2); Monocytes Percent Auto 8.5 % (2-11); Neutrophils Absolute Auto 2.3 x10*3/uL (2.0-8.3); Neutrophils Percent Auto 56.6 % (45-73); Platelet Count 236 X10*3/uL (160-400); Red Blood Count 5.02 X10*6/uL (4.20-5.50); Red Cell Distribution Width 13.1 % (11.0-16.0)
[2023-08-19 12:03] LABS: Alanine Aminotransferase 21 U/L (0-31); Albumin Level 4.5 g/dL (3.5-5.0); Alkaline Phosphatase 75 U/L (39-117); Anion Gap 11 (12-20); Aspartate Amino Transferase 23 U/L (5-31); Bilirubin Total 0.8 mg/dL (0.0-1.0); Blood Urea Nitrogen 13 mg/dL (9-16); Calcium 9.8 mg/dL (8.4-10.2); Carbon Dioxide 30 mmol/L (22-29); Chloride 106 mmol/L (96-108); Cholesterol 152 mg/dL (<200); Estimated Glomerular Filt Rate > 60; Glucose Fasting 95 mg/dL (60-99); HDL Cholesterol 74 mg/dL (>40); LDL Cholesterol Calculated 61 mg/dL (<100); Potassium 4.5 mmol/L (3.3-5.1); Sodium 142 mmol/L (135-145); Total Protein 7.1 g/dL (6.5-8.0); Triglycerides 86 mg/dL (<150)
== END 2023-08-19 10:02 | disposition home or self-care (01) ==
LOC: HO.LAB 10:01
PROVIDERS: PCP Internal Medicine; Visit Provider Internal Medicine
DX: E78.00 Pure hypercholesterolemia, unspecified (principal); M79.642 Pain in left hand
CPT/HCPCS: 36415; 73130; 80053; 80061; 85025

== ENCOUNTER 2023-11-20 13:05 | Outpatient (AMB) | payer MEDICARE, SELFPAY ==
--- NOTE | 2023-11-20 13:12 | MHC.OFFVIS ---
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 She is doing well with no concerns. Attempting to eat a healthy diet with calcium and vitamin D and stays active with exercise. Currently sexually active. Denies any vaginal dryness or irritation. STI testing offered; she accepts. Last pap smear; 2019. Last mammogram; . Colonoscopy consult is booked. Denies any family history of breast, ovarian or colon cancer. [facility] Medical History (Updated 11/20/23 @ 13:29 by Ana María Ivy CNM) Osteopenia Basal cell carcinoma (BCC) in situ of skin High cholesterol Surgical History H/O colonoscopy History of breast biopsy H/O left wrist surgery History of knee surgery H/O cone biopsy of cervix History of Social History Alcohol intake: current Alcohol intake frequency: a few times a month Alcohol type: wine Patient Tobacco Use Status: Never used Tobacco Gender identity: Female Female Reproductive History Menstrual Age of Menarche: 11 Menopause type: natural Total pregnancies: 1 Full term: 1 Number of Living Children: 1 Date of last pap smear: 09/18/18 (neg pap and hpv) Date of Mammogram: 07/02/23 ([facility] 1) Date of last Bone Density Screenin11/28/22 Review of Systems Const All systems reviewed & are unremarkable except as noted in HPI and below Reports as per HPI Eyes Reports no additional complaints ENT Reports no additional complaints Card Reports no additional complaints Resp Reports no additional complaints GI Reports as per HPI and Reports no additional complaints Reports as per HPI Musc Reports no additional complaints Skin/Breast Reports as per HPI Neuro Reports no additional complaints Psych Reports no additional complaints Endo Reports no additional complaints Gage/Lymph Reports no additional complaints Aller/Immun Reports no additional complaints Physical Exam Vital Signs: Last Vital Signs BP 124/80 11/20/23 13:14 BMI result Body Mass Index 25.4 Const General: cooperative, healthy appearing, no acute distress, well developed and alert Orientation/consciousness: patient oriented x3 HEENT Head: Yes normal to inspection Eyes General: appearance normal, both eyes and all related structures Neck Neck: Yes normal visual inspection Thyroid: Thyroid normal Chest Chest palpation & inspection: normal inspection of the chest and other (no puckering, dimpling, peau de orange, retraction, discharge, masses) Breast/axilla inspection: normal inspection of the breasts Breast/axilla palpation: normal palpation of the breasts Resp Effort & Inspection: normal respiratory effort GI Inspection: Yes normal to inspection Palpation (GI): Soft to palpation Rectal Exam - Female: deferred General: Yes bladder normal to palpation External Female Exam: normal external appearance and normal appearance of the urethra Speculum Exam - Vagina: normal appearance of the vagina, normal palpation, normal vaginal discharge and vagina atrophic Speculum Exam - Cervix: normal appearance of the cervix and normal palpation Bimanual exam- vagina & uterus: normal bimanual exam, normal palpation, uterine size normal, bladder normal to palpation, normal palpation and non-tender Bimanual Exam- Adnexa, other: no masses Skin General skin exam: no rashes or lesions noted Rashes: no rashes Neuro General: patient oriented x3 Cognition (Neuro): normal cognition Extrem General: Yes normal to inspection Psych Attitude: cooperative Thought process: Normal thought process present Assessment & Plan Assessment & Plan (1) Encounter for well woman exam with routine gynecological exam: Code(s): Z01.419 - Encounter for gynecological examination (general) (routine) without abnormal findings Category: Medical Plan Discussed: Current recommendations for pap smears per ASCCP guidelines. Breast awareness, periodic self breast exams and yearly mammogram. Maintain a healthy lifestyle, well balanced diet including Calcium 1,200 mg and Vitamin D 800 IU daily, and routine exercise. Calcium handout dispensed. Contact the office with any postmenopausal bleeding. Sign up for the patient portal if not already enrolled. Patient verbalizes understanding and agrees to the plan of care. She was given opportunity to ask questions and all questions were answered to the best of my ability. Return to the office 1 year. This note is constructed using voice recognition software. While every effort has been made to ensure accuracy, retail wireless sales consultant errors may have been included. RTO in 1 year for annual numberer and wirer exam. Coding Level of Care Code Est Pt Prev Care >65y(34550) Diagnoses Encounter for well woman exam with routine gynecological exam Z01.419
[2023-11-20 13:14] VITALS: BP 124/80; BMI 25.4
== END 2023-11-20 13:42 | disposition home or self-care (01) ==
PROVIDERS: PCP Internal Medicine; Visit Provider Advanced Practice Midwife
DX: Z01.419 Encounter for gynecological examination (general) (routine) without abnormal findings (principal)
CPT/HCPCS: 99397

== ENCOUNTER → 2023-11-20 13:05 | Outpatient (BNVA) | payer MEDICARE, SELFPAY | PROVIDERS: PCP Internal Medicine; Visit Provider Advanced Practice Midwife ==

== ENCOUNTER 2023-11-26 14:21 | Outpatient (AMB) | payer MEDICARE, SELFPAY ==
--- NOTE | 2023-11-26 14:24 | A.OFFVIS_ITS ---
Vital Signs 3 11/26/23 14:25 Height 5 ft 4 in Weight 149 lb 7.574 oz BMI 25.7 BP 144/79 H Blood Pressure Location Lt brachial Position Sitting Pulse 65 Intake Visit Reasons: colonoscopy screeening Intake Note: Romelia presents to in office visit as a new patient for colonoscopy screening. CC: Patient had a colonoscopy [address] 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 She is referred by elizabeth Potts. P.m. X Allergic rhinitis High cholesterol GERD - pt denies Knee pain Palpitations - pt denies History of colon polyps in brother Osteopenia - pt denies * SURGICAL HISTORY Colonoscopy-2014, Scruggs equaled negative exam Breast biopsy Left wrist surgery - s/p fx x2 Knee surgery Cervical cone biopsy section removal of BCC skin x 2 * ALLERGIES Roxicet - rash * [facility] LABS: Laboratory Tests 08/19/23 10:34 WBC 4.0 L Hgb 15.0 Hct 44.8 Plt Count 236 Estimated GFR > 60 Total Bilirubin 0.8 AST 23 ALT 21 Alkaline Phosphatase 75 TODAY'S VISIT This will be her third colonoscopy. She has used a pediatric scope in the past.She would prefer a pill prep as this is what she used in the past. She denies GERD and only has CIC when she eats too much cheese and she uses prn senna or prunes. There are no prior problems with anesthesia or sedation. She denies any cardiac or respiratory problems. NO ID problems. She thinks her brother had colon polyps; she is unsure. [facility] Medical History (Updated 11/26/23 @ 15:04 by CLEVELAND Galvez) Encounter for well woman exam with routine gynecological exam Osteopenia Basal cell carcinoma (BCC) in situ of skin High cholesterol Surgical History H/O colonoscopy History of breast biopsy H/O left wrist surgery History of knee surgery H/O cone biopsy of cervix History of Family History (Updated 11/26/23 @ 14:34 by Jason Gillis [facility]) Father CHF (congestive heart failure) Mother CHF (congestive heart failure) Heart attack Social History Alcohol intake: current Alcohol intake frequency: a few times a month Alcohol type: wine Patient Tobacco Use Status: Never used Tobacco Gender identity: Female Female Reproductive History Menstrual Age of Menarche: 11 Review of Systems Const Denies fatigue, Denies fever(s), Denies night sweats, Denies poor appetite and Denies weight loss ENT Reports Normal hearing present, Denies dental pain, Denies dysphagia, Denies hearing loss, Denies mouth pain, Denies odynophagia, Denies throat swelling, Denies tongue swelling and Reports other (Dentition adequate) Card Reports no additional complaints Resp Reports no additional complaints GI Details: Denies abdominal pain, Denies melena, Denies bloating, Denies hematochezia, Reports constipation, Denies GI cramping, Denies dysphagia, Denies excessive flatus, Denies early satiety, Denies heartburn, Denies diarrhea, Denies nausea, Denies odynophagia, Denies vomiting and Denies hematemesis Skin/Breast Denies pruritus, Denies lesions, Denies rash and Denies jaundice Neuro Reports Normal hearing present and Denies Abnormal speech present Endo Denies fatigue Aller/Immun Denies throat swelling and Denies tongue swelling Physical Exam Vital Signs: Last Vital Signs Pulse 65 11/26/23 14:25 BP 144/79 H 11/26/23 14:25 BMI result Body Mass Index 25.7 Const General: cooperative, no acute distress, well developed and well groomed Nutritional Appearance: average body habitus and well nourished Orientation/consciousness: oriented to person, oriented to place and oriented to time Limitations: No language barrier HEENT Head: Yes normocephalic and Yes atraumatic Eyes General: appearance normal, both eyes and all related structures Pupils: Equal, round and reactive pupils present Neck Neck: Yes normal visual inspection and Yes no lymphadenopathy Thyroid: Thyroid normal Resp Effort & Inspection: normal respiratory effort and able to speak in complete sentences Auscultation: clear to auscultation bilaterally Cardio Rate: regular rate Rhythm: regular rhythm Heart sounds: Normal, physiologic split S2 sound present Peripheral pulses: radial pulses present and posterior tibial pulses present GI Inspection: No distended and No Abdominal panniculus present Palpation (GI): Soft to palpation, nontender, no guarding, not rigid and No hepatosplenomegaly present Percussion: Yes normal to percussion Auscultation: normal bowel sounds Rectal Exam - Female: deferred Abdomen image: 2 1. surgical scar Skin General skin exam: no rashes or lesions noted, turgor normal, skin not dry, no jaundice, No spider nevi and no striae Rashes: no rashes Nails: normal Neuro General: oriented to person, oriented to place and oriented to time Cranial nerves: Yes Equal, round and reactive pupils present and Yes Normal hearing present Speech: No Abnormal speech present Extrem General: Yes normal to inspection, No clubbing, No cyanosis and No edema Psych Appearance: grossly normal and well kempt Mental Status: mental status grossly normal Speech and movement: Normal speech and movement present Affect: normal affect Attitude: cooperative Thought process: Normal thought process present and not confabulating Thought content: Normal thought content present Insight: Fair insight present (Psych) Judgement: Fair judgement present (Psych) Assessment & Plan Assessment & Plan (1) Family history of polyps in the colon: Comment: Brother Code(s): Z83.719 - Family history of colon polyps, unspecified Category: Medical (2) Tubular adenoma of colon: Code(s): D12.6 - Benign neoplasm of colon, unspecified Category: Medical (3) GERD (gastroesophageal reflux disease): Code(s): K21.9 - Gastro-esophageal reflux disease without esophagitis Category: Medical Plan This will be her third colonoscopy. She has used a pediatric scope in the past.She would prefer a pill prep as this is what she used in the past. She denies GERD and only has CIC when she eats too much cheese and she uses prn senna or prunes. There are no prior problems with anesthesia or sedation. She denies any cardiac or respiratory problems. NO ID problems. She thinks her brother had colon polyps; she is unsure. Orders: Orders 2 Colonoscopy - GI Use Only 11/26/23 Z83.719 - Family history of colon polyps, unspecified Medications: New 2 peg 3350-electrolytes 236-22.74-6.74 -5.86 gram (Golytely) until fecal effluent is clear; do not exceed a total volume of 2,000 mL 240 mL PO Q10M 4,000 mL 0RF 1 day Z12.11 - Encounter for screening for malignant neoplasm of colon bisacodyl (Dulcolax (bisacodyl)) 10 mg (2 x 5 mg) PO BEDTIME 4 tabs 0RF 2 days sod sulf-pot chloride-mag sulf 1.479-0.188- 0.225 gram (Sutab) as directed orally per package directions; PO PER PKG DIR for colonoscopy prep 24 tabs 0RF Z83.719 - Family history of colon polyps, unspecified Coding Level of Care Code New Pt Level 3 (80875) Diagnoses Family history of polyps in the colon Z83.719 Tubular adenoma of colon D12.6 GERD (gastroesophageal reflux disease) K21.9
[2023-11-26 14:25] VITALS: BP 144/79; PULSE 65; BMI 25.7
== END 2023-11-26 15:24 | disposition home or self-care (01) ==
PROVIDERS: PCP Internal Medicine; Visit Provider Nurse Practitioner
DX: Z83.719 Family history of colon polyps, unspecified (principal); D12.6 Benign neoplasm of colon, unspecified; K21.9 Gastro-esophageal reflux disease without esophagitis
CPT/HCPCS: 99203

== ENCOUNTER → 2023-11-26 14:21 | Outpatient (BNVA) | payer MEDICARE, SELFPAY | PROVIDERS: PCP Internal Medicine; Visit Provider Nurse Practitioner | DX: Z01.818 Encounter for other preprocedural examination (principal); K59.04 Chronic idiopathic constipation; D12.6 Benign neoplasm of colon, unspecified; K21.9 Gastro-esophageal reflux disease without esophagitis; Z83.719 Family history of colon polyps, unspecified | CPT/HCPCS: 99202 ==

== ENCOUNTER 2024-04-09 09:25 | Day surgery (SDC) | payer MEDICARE, SELFPAY ==
[2024-04-07 10:08] VITALS: BMI 25.6
--- NOTE | 2024-04-08 09:41 | P.CONAN_ITS ---
Documented by User: Radha Davidson NP 04/08/24 09:42 HPI - Anesthesia Eval Consult details Narrative: 68yo F for Colonoscopy PMFSH Active Problems Active Problems: All Active Problems Family history of polyps in the colon (Acute) Palpitations (Acute) GERD (gastroesophageal reflux disease) (Acute) Allergic rhinitis (Acute) Left knee pain (Acute) Right knee pain (Acute) Arthritis of left knee (Acute) Osteopenia (Acute) Past Medical History Medical History Encounter for well woman exam with routine gynecological exam Osteopenia Basal cell carcinoma (BCC) in situ of skin High cholesterol Family History Family History Father CHF (congestive heart failure) Mother CHF (congestive heart failure) Heart attack Surgical History Surgical History H/O colonoscopy History of breast biopsy H/O left wrist surgery History of knee surgery H/O cone biopsy of cervix History of Social History Social History Are you a primary care assistant to a significant other at home: No Do you presently have visiting nurse or other home services: No Alcohol intake: current Alcohol intake frequency: a few times a month Alcohol type: wine Patient Tobacco Use Status: Never used Tobacco Have you been hit, kicked, punched, or otherwise hurt by someone within the past year? If so, by whom?: No Are you DNR?: No Advance Directives: No Advance Directives Information Provided: Yes Recently lost weight without trying: No Nutrition Risks: No Nutritional Risk Gender identity: Female Meds Allergies Allergy/AdvReac Type Severity Reaction Status Date / Time acetaminophen [From Roxicet] Allergy Severe Rash Verified 04/09/24 09:52 house dust Allergy Severe Unknown Verified 04/09/24 09:52 oxycodone [From Roxicet] Allergy Severe Rash Verified 04/09/24 09:52 dust,pollen Allergy Unknown unknown Uncoded 04/09/24 09:52 enviromental allergies Allergy Unknown Unknown Uncoded 04/09/24 09:52 Home Medications ?Medication ?Instructions ?Recorded ?Confirmed ?Last Taken ?Type cholecalciferol (vitamin D3) 50 50 mcg PO DAILY 07/12/20 04/09/24 Unknown History mcg (2,000 unit) capsule loratadine 10 mg tablet (Allergy 10 mg PO DAILY 07/12/20 04/09/24 Unknown History Relief (loratadine)) multivitamin 1 tab PO DAILY 07/12/20 04/09/24 Unknown History omega-3-dha 120 mg-epa 180 mg-fish cap PO 07/12/20 11/23/22 04/05/24 History oil-vitamin D3 1,000 unit capsule lactobacillus combination no.4 3 3,000 mmu cells PO DAILY 11/15/22 04/09/24 Unknown History billion cell capsule (Probiotic) rosuvastatin 10 mg tablet 10 mg PO DAILY 11/15/22 04/09/24 Unknown History vitamin B complex 1 tab PO DAILY 11/20/23 04/09/24 Unknown History Exam Height,Weight and Vital Signs: Height 5 ft 4 in Weight 67.585 kg Assessment and Plan Assessment Anesthesia Assessment: Chart Reviewed Documented by User: Jamila Maciel MD 04/09/24 10:06 [facility] Past Medical History Medical History Encounter for well woman exam with routine gynecological exam Osteopenia Basal cell carcinoma (BCC) in situ of skin High cholesterol Family History Family History Father CHF (congestive heart failure) Mother CHF (congestive heart failure) Heart attack Family history of problems with anesthesia: No Surgical History Surgical History H/O colonoscopy History of breast biopsy H/O left wrist surgery History of knee surgery H/O cone biopsy of cervix History of History of Problems with Anesthesia: No Social History Social History Are you a primary care assistant to a significant other at home: No Do you presently have visiting nurse or other home services: No Alcohol intake: current Alcohol intake frequency: a few times a month Alcohol type: wine Patient Tobacco Use Status: Never used Tobacco Have you been hit, kicked, punched, or otherwise hurt by someone within the past year? If so, by whom?: No Are you DNR?: No Advance Directives: No Advance Directives Information Provided: Yes Recently lost weight without trying: No Nutrition Risks: No Nutritional Risk Gender identity: Female Meds Allergies Allergy/AdvReac Type Severity Reaction Status Date / Time acetaminophen [From Roxicet] Allergy Severe Rash Verified 04/09/24 09:52 house dust Allergy Severe Unknown Verified 04/09/24 09:52 oxycodone [From Roxicet] Allergy Severe Rash Verified 04/09/24 09:52 dust,pollen Allergy Unknown unknown Uncoded 04/09/24 09:52 enviromental allergies Allergy Unknown Unknown Uncoded 04/09/24 09:52 Home Medications ?Medication ?Instructions ?Recorded ?Confirmed ?Last Taken ?Type cholecalciferol (vitamin D3) 50 50 mcg PO DAILY 07/12/20 04/09/24 Unknown History mcg (2,000 unit) capsule loratadine 10 mg tablet (Allergy 10 mg PO DAILY 07/12/20 04/09/24 Unknown History Relief (loratadine)) multivitamin 1 tab PO DAILY 07/12/20 04/09/24 Unknown History omega-3-dha 120 mg-epa 180 mg-fish cap PO 07/12/20 11/23/22 04/05/24 History oil-vitamin D3 1,000 unit capsule lactobacillus combination no.4 3 3,000 mmu cells PO DAILY 11/15/22 04/09/24 Unknown History billion cell capsule (Probiotic) rosuvastatin 10 mg tablet 10 mg PO DAILY 11/15/22 04/09/24 Unknown History vitamin B complex 1 tab PO DAILY 11/20/23 04/09/24 Unknown History Exam Airway Mallampati Class: II TM Dist: >3cm Neck ROM: Full Heart: rrr Lungs: cta Assessment and Plan Assessment Anesthesia Assessment: Anesthesia Plan Discussed Final Anesthetic Review Family History of Problems with Anesthesia: No History of Problems with Anesthesia: No NPO: Yes ASA Class: II Final Preanesthetic Review: No Changes in Pt Med Stat, Meds/Allgs Chart Reviewed, Consent Obtained/Reviewed and Anes Risks/Benef Reviewed Patient Risk: Low Anesthetic Plan Anesthetic Plan: MAC: Disposition: Standard PACU
[2024-04-09 09:50] VITALS: BMI 25.2
[2024-04-09] MEDS: Lactated Ringers 1,000 ML 100 ML IVCONT (09:57)
--- NOTE | 2024-04-09 10:11 | MHC.SHP ---
Pre-Procedural Eval Section A - 24 Hr Update-Section A only Date of Service: 04/09/24 Section B - Complete if H&P > 30 days Chief Complaint: Family history of colon polyps, unspecified Details of Present Illness: Encounter for well woman exam with routine gynecological exam Osteopenia Basal cell carcinoma (BCC) in situ of skin High cholesterol Surgical History H/O colonoscopy History of breast biopsy H/O left wrist surgery History of knee surgery H/O cone biopsy of cervix History of Present Medications: see Short Stay Collaborative assessment Allergies: Allergies Allergy/AdvReac Type Severity Reaction Status Date / Time acetaminophen [From Roxicet] Allergy Severe Rash Verified 04/09/24 09:52 house dust Allergy Severe Unknown Verified 04/09/24 09:52 oxycodone [From Roxicet] Allergy Severe Rash Verified 04/09/24 09:52 dust,pollen Allergy Unknown unknown Uncoded 04/09/24 09:52 enviromental allergies Allergy Unknown Unknown Uncoded 04/09/24 09:52 Review of Systems Review of Systems Comment: Ten point ROS negative Exam Exam Comment: Gen appear: No acute distress HEENT: no icterus Chest: No overt resp distress Abd: soft, nontender, nondistended Psych: Stable affect, answering questions appropriately Neuro: A/Ox3 noted to move all extremities spontaneously Ext: no peripheral edema Plan Diagnosis/Plan: Unchanged I have reviewed the history and physical and performed a pertinent physical examination on my patient. No changes have occurred unless specified. Time Spent With Patient Time: Total time managing care of this patient today ____ minutes.
[2024-04-09 10:16] VITALS: BP 135/74; PULSE 84; RESP 18; TEMP 36.6; O2SAT 97
[2024-04-09 12:25] VITALS: BP 111/53; PULSE 62; RESP 17; TEMP 36.9; O2SAT 98
--- NOTE | 2024-04-09 12:35 | P.OPN-COLO_ITS ---
Colonoscopy Operative Note Operative Note Date of Service: 04/09/24 Narrative: Procedure: Colonoscopy Indication: Screening, fam hx of polyps Endoscopist: Shala Oconnor MD Anesthesia Provider: Rajni Hui CRNA Anesthesia type: MAC Instrument: Olympus [id number]-[id number] Consent: Indication, risks vs benefits, and alternatives were discussed with the patient who gave written informed consent to proceed. EKG, pulse, pulse oximetry and blood pressure were monitored throughout the procedure. Please see anesthesia flowsheet. Procedure: The patient was brought to the procedure room and placed in the left lateral decubitus position. IV medications were administered by the anesthesia provider in attendance. A digital rectal exam was performed which was abnormal for external hemorrhoids. A distal attachment cap was affixed to the tip of the colonoscope which was then inserted through the anus and advanced through the colon to the cecum at cm,and terminal ileum. Appendiceal orifice and ileocecal valve were identified. Mucosa was carefully examined under high definition white light as the instrument was slowly withdrawn in a retrograde panoramic fashion. Retroflexion was performed in rectum. The procedure was not difficult. There were no immediate obvious complications. The quality of the prep was BBPS: 3+2+3 = adequate Withdrawal time 7 minutes. Limitations: No limitations. Findings: Mucosa: Normal to cecum and terminal ileum. Protruding lesions: * Medium internal hemorrhoids without stigmata of recent bleeding. Excavated lesions: * Mild to moderate diverticulosis of left sided colon. Impression: 1. Normal colon and terminal ileum mucosa 2. Internal and external hemorrhoids 3. Diverticulosis Recommendations: - Repeat colonoscopy can be considered in 10 years if patient in good health, unless brother has hx of advanced polyps in which case she should return in 5 years.
[2024-04-09 12:40] VITALS: BP 116/63; PULSE 0; RESP 20; TEMP 36.2; O2SAT 99
--- OUTSIDE RECORDS SUMMARY | 2024-04-15 00:53 | XMS_ITS | Patient Health Record ---
[facility] Address [address] [facility] [address] [place] [address] Care Team Providers Care Song And Dance Performer Name Role Phone Jesus Potts MD Primary Care Provider Unavaila ble Black, Diana Unavailable [phone] Allergies Allergen (clinical drug ingredient) Drug/Non Drug Allergy documented on EMR Reaction Allergy Type Onset Date Status Roxicet Unknown Drug Allergy Active Seasonale Unknown Drug Allergy Active Reason For Referral No Information Medications Medication SIG (Take, Route, Frequency, Duration) Notes Start Date End Date Status Fish Oil Active Rosuvastatin Calcium 10 MG 1 tablet Orally Once a day for 30 day(s) Active Loratadine 10 MG 1 tablet Orally Once a day for 30 day(s) Active Vitamin B Complex Ac tive Probiotic Active [place] 3 Not-Taking Vitamin D Active Multivitamin Active Immunizations Vaccine Route Administration Date Status Comme nts COVID-19 Moderna Vaccine Unknown 06/20/2020 Administered Second Dose: 07/18/2020 Social History Tobacco Use: Social History Observation Description Date Details (start date - stop date) Never Smoker NA - NA Tobacco Use/Smoking Question Answer Notes Are you a: nonsmoker Alcohol Screen Question Answer Notes Did you have a drink containing alcohol in the p ast year? Yes Points 0 Interpretation Negative Tobacco use other than smoking: Question Answer Notes Are you an other tobacco user? No Problems Problem Type SNOMED Code ICD Code Onset Dates Problem Status W/U Status Risk Notes Problem Acquired hallux valgus (62724898) Hallux valgus (acquired), left foot (M20.12) Active confirmed Problem Acquired hallux valgus (33559789) Hallux valgus (acquired), right foot (M20.11) Active confirmed Plan Of Treatment Pending Test Test Name Order Date X ray : Foot, right 3V 01/01/2022 [id number] NAIL, 1-01/01/2022 [id number] Destruction, -01/01/2022 Insurance Providers Payer Name Payer Address Payer Phone Subscriber Number Group Number Insured Name Patient Relationship to Insured Coverage Start Date Coverage End Date [facility] [address] [place] [address] [phone] [id number] Romelia Cabral Self - patient is the insured Medical (General) History Medical History History ICD Code Cancer Seasonal allergies Surgical History Surgery Date(Month/Year) torn meniscus 06/2017 Broken wrist 06/2015 remove metal plate 10/2017
== END 2024-04-09 13:06 | disposition home or self-care (01) ==
PROVIDERS: PCP Internal Medicine; Visit Provider Internal Medicine
PROC: 0DJD8ZZ Inspection of Lower Intestinal Tract, Via Natural or Artificial Opening Endoscopic (ICD-10-PCS; CPT 45378; principal; 2024-04-09 11:10)
DX: Z12.11 Encounter for screening for malignant neoplasm of colon (principal); Z83.719 Family history of colon polyps, unspecified; K57.30 Diverticulosis of large intestine without perforation or abscess without bleeding; K64.8 Other hemorrhoids; K64.4 Residual hemorrhoidal skin tags; Z98.890 Other specified postprocedural states
CPT/HCPCS: G0105; J2003; J2704

== ENCOUNTER → 2024-04-09 09:25 | Outpatient (BNV) | payer MEDICARE, SELFPAY | PROVIDERS: PCP Internal Medicine; Visit Provider Internal Medicine | DX: Z12.11 Encounter for screening for malignant neoplasm of colon (principal); Z83.719 Family history of colon polyps, unspecified; K57.30 Diverticulosis of large intestine without perforation or abscess without bleeding; K64.8 Other hemorrhoids | CPT/HCPCS: G0105 ==

== ENCOUNTER 2024-07-08 13:00 | Outpatient (REF) | payer MEDICARE, SELFPAY ==
--- OUTSIDE RECORDS SUMMARY | 2024-07-08 15:24 | XMS_ITS | Patient Health Record ---
[facility] Address [address] [facility] [place] [address] Care Team Providers Care Quality Assurance Advisor Name Role Phone Jesus Potts MD Primary Care Provider Unavaila ble Black, Diana Unavailable [phone] Allergies Allergen (clinical drug ingredient) Drug/Non Drug [...] Vitamin B Complex Ac tive Probiotic Active [place] 3 Not-Taking Vitamin D Active Multivitamin Active [...] Status Risk Notes Problem Acquired hallux valgus (00590700) Hallux valgus (acquired), left foot (M20.12) Active confirmed Problem Acquired hallux valgus (33813571) Hallux valgus (acquired), right foot (M20.11) Active confirmed Plan Of Treatment Pending Test Test Name Order Date X ray : Foot, right 3V 01/01/2022 [id number] NAIL, 1-01/01/2022 [id number] Destruction, -01/01/2022 Insurance Providers Payer Name Payer Address Payer Phone Subscriber Number Group Number Insured Name Patient Relationship to Insured Coverage Start Date Coverage End Date [facility] [address] [place] [address] [phone] [id number] Romelia Cabral Self - patient is the insured Medical (General) History Medical History History ICD Code Cancer Seasonal allergies Surgical History Surgery Date(Month/Year) torn meniscus 06/2017 Broken wrist 06/2015 remove metal plate 10/2017
== END 2024-07-08 13:01 | disposition home or self-care (01) ==
LOC: HO.MAMMO 13:00
PROVIDERS: PCP Internal Medicine; Visit Provider Internal Medicine
DX: Z12.31 Encounter for screening mammogram for malignant neoplasm of breast (principal)
CPT/HCPCS: 77063; 77067

== ENCOUNTER → 2024-07-08 13:00 | Outpatient (BNV) | payer MEDICARE, SELFPAY | PROVIDERS: PCP Internal Medicine; Visit Provider Internal Medicine | DX: Z12.31 Encounter for screening mammogram for malignant neoplasm of breast (principal) | CPT/HCPCS: 77063; 77067 ==

== ENCOUNTER 2024-07-27 13:40 | Outpatient (REF) | payer MEDICARE, SELFPAY ==
[2024-07-27 16:12] LABS: MANUAL DIFF FLAG NO
[2024-07-27 16:26] LABS: Basophils Percent Auto 0.5 % (0-2); Eosinophils Absolute Auto 0.2 X10*3/uL (0.0-0.4); Hematocrit 39.8 % (37.0-47.0); Hemoglobin 13.5 g/dl (12.0-16.0); Imm Gran Abs Auto 0.01 X10*3/uL (0.00-0.03); Imm Gran Pct Auto 0.2 % (0.0-0.4); Lymphocytes Absolute Auto 1.3 X10*3/uL (1.2-4.9); Lymphocytes Percent Auto 21.1 % (20-40); Mean Corpuscular HGB Conc 33.9 g/dl (31.0-35.0); Mean Corpuscular Hemoglobin 29.9 pg (27.0-33.0); Mean Corpuscular Volume 88.2 fL (80.0-98.0); Mean Platelet Volume 10.2 fL (9.4-12.3); Monocytes Absolute Auto 0.5 X10*3/uL (0.1-1.2); Monocytes Percent Auto 7.6 % (2-11); Neutrophils Absolute Auto 4.3 x10*3/uL (2.0-8.3); Neutrophils Percent Auto 67.6 % (45-73); Platelet Count 276 X10*3/uL (160-400); Red Blood Count 4.51 X10*6/uL (4.20-5.50); Red Cell Distribution Width 13.8 % (11.0-16.0); White Blood Count 6.3 X10*3/uL (4.8-10.8)
[2024-07-27 16:31] LABS: Appearance Urine Clear; Color Urine Yellow; Glucose Urine UA Negative (Negative); Leukocyte Esterase Urine Negative (Negative); Nitrite Urine Negative (Negative); PH 5.5 (5.0-9.0); Urine Blood Negative (Negative); Urine Ketones Trace mg/dL (Negative); Urine Protein Negative (Neg-Trace)
[2024-07-27 16:56] LABS: Alanine Aminotransferase 25 U/L (0-31); Albumin Level 4.1 g/dL (3.5-5.0); Anion Gap 10 (12-20); Aspartate Amino Transferase 31 U/L (5-31); Bilirubin Total 0.9 mg/dL (0.0-1.0); Blood Urea Nitrogen 15 mg/dL (9-16); Calcium 9.4 mg/dL (8.4-10.2); Carbon Dioxide 27 mmol/L (22-29); Chloride 107 mmol/L (96-108); Cholesterol 150 mg/dL (<200); Estimated Glomerular Filt Rate > 60; Glucose Fasting 83 mg/dL (60-99); HDL Cholesterol 68 mg/dL (>40); LDL Cholesterol Calculated 66 mg/dL (<100); Potassium 4.4 mmol/L (3.3-5.1); Sodium 140 mmol/L (135-145); Total Protein 6.6 g/dL (6.5-8.0); Triglycerides 81 mg/dL (<150)
[2024-07-27 17:02] LABS: Alkaline Phosphatase 68 U/L (39-117); Vitamin D 25-OH Total 52.2 ng/mL (>30)
== END 2024-07-27 13:41 | disposition home or self-care (01) ==
LOC: HO.HMGCLDS 13:40
PROVIDERS: PCP Internal Medicine; Visit Provider Internal Medicine
DX: Z00.00 Encounter for general adult medical examination without abnormal findings (principal); E78.00 Pure hypercholesterolemia, unspecified; K21.9 Gastro-esophageal reflux disease without esophagitis
CPT/HCPCS: 36415; 80053; 80061; 81003; 82306; 85025

== ENCOUNTER 2024-09-04 13:11 | Outpatient (AMB) | payer MEDICARE, SELFPAY ==
[2024-09-04 13:19] VITALS: BP 122/80; PULSE 62; TEMP 36.6; O2SAT 99; BMI 26.1
--- NOTE | 2024-09-04 13:19 | A.OFFPC_ITS ---
Vital Signs 09/04/24 13:19 Height 5 ft 4 in Weight 68.946 kg BMI 26.1 BP 122/80 Blood Pressure Location Lt brachial Position Sitting Pulse 62 Pulse Source Pulse Oximeter Temp 97.8 F Temp Source Axillary Pulse Oximetry (%) 99 Oxygen Delivery Method Room Air Intake Visit Reasons: Routine Blood Typer Required: No Accompanied by: Self / Same As Patient Allergies acetaminophen [From Roxicet] Allergy (Severe, Verified 09/04/24 13:19) Rash house dust Allergy (Severe, Verified 09/04/24 13:19) Unknown oxycodone [From Roxicet] Allergy (Severe, Verified 09/04/24 13:19) Rash dust,pollen Allergy (Unknown, Uncoded 04/09/24 09:52) unknown enviromental allergies Allergy (Unknown, Uncoded 04/09/24 09:52) Unknown Tobacco use date assessed: 09/04/24 Fall risk assessment: 1 Fall in past year Last assessed Fall Risk: 09/04/24 Dental Screening Dental Screen Date: 09/04/24 Did you have a dental visit in the last 12 months?: Yes Did you have a dental problem in the last 6 months where you did not have access to dental care?: No HPI HPI Comments History of Present Illness Details History of Present Illness The patient is a 68-year-old female presenting with a routine follow-up visit. She manages hyperlipidemia with rosuvastatin and has resolved osteopenia attributed to her consistent exercise regimen, particularly weight training. The patient's cataracts were noted during evaluation, yet no surgical action is required at this time. She reported occasional headaches potentially linked to neck positioning. The patient has experienced longstanding tinnitus, likely from past concert attendance, and has dealt with joint pain, including postoperative recovery from a meniscus tear, without needing further surgery. Mild constipation is occasional and controlled by dietary adjustment. Her current dermatological management includes topical treatment for athlete's foot. She notes a recurring issue with hammertoe but has not opted for surgical correction. There are no significant changes in her overall health. Health Maintenance - Hyperlipidemia managed with rosuvastat in - Regular exercise routine: cardio and r esistance training - Mammogram in July: benign findings - Colonoscopy in July: no abnormalities - Up-to-date on women?s health exams, in cluding mammograms and routine gynecological visits - Active lifestyle for prevention of ost eoporosis - Diet including fish, eggs, nuts, and g rains; minimal red meat - Vitamins and supplements: probiotics, vitamin D - No tobacco use, limited alcohol consum ption - Regular sunscreen and foot hygiene for athlete's foot prevention Social History - Diet: Minimal red meat, includes fish, nuts, grains, and probiotic intake - Exercise: Regular weight and cardio cl asses, with walking 3-5 miles daily - Lifestyle: Active with attention to [employer] health - Alcohol: Occasional consumption, predo minantly social - Tobacco: Non-smoker - Occupation: Not discussed - Housing: Not discussed - Family Status: Not discussed Review of Systems - Eyes: Reports developing cataracts - Ears/Nose/Throat: Reports tinnitus - Cardiovascular: Denies chest pain - Respiratory: Denies shortness of breat h - Gastrointestinal: Reports occasional c onstipation; denies GERD - Genitourinary: Reports up-to-date wome n?s health exams - Musculoskeletal: Reports joint pain; h istory of knee surgery - Neurological: Reports occasional heada ches; denies dizziness - Dermatological: Reports athlete's foot ; history of hammertoe Physical Exam General: Cooperative, healthy appearing, comfortable, no acute distress and well developed Orientation: Patient oriented x3 Limitations: No limitations Head: Normal to inspection Ears: Hearing grossly normal bilaterally, tinnitus noted Nose: Normal external nose present Face and sinus: Normal facial exam Eyes: Appearance normal, both eyes and all related structures, cataracts forming Neck: Normal visual inspection and Yes full ROM, occasional pain related to neck movement Respiratory: Normal respiratory effort and able to speak in complete sentences. Clear to auscultation bilaterally Cardiovascular: Regular rate and rhythm. Normal S1 and S2 GI: Normal to inspection. Soft to palpation and nontender, occasional constipation related to diet Skin: No rashes or lesions noted, athlete's foot and thickening/wolf of skin on back noted Neuro: Patient oriented x3, no numbness, tingling, or weakness in arms Extremities: Normal to inspection, arthritis in big toe of right foot, orthotics used for knee support Results - Labs: Normal blood work including kidn ey function, liver enzymes, and cholesterol levels - Imaging: Mammogram showed benign findi ngs; colonoscopy showed no abnormalities Plan I will continue managing her hyperlipidemia with rosuvastatin and encourage commitment to a balanced diet and regular exercise. Her osteopenia shows improvement thanks to her active lifestyle. Follow-up on cataracts is advised with her septic pump truck driver to monitor progression. Continued conservative treatment for athlete's foot is advised. Ophthalmic, gastroenterological, and musculoskeletal health will be maintained with current strategies, with further interventions considered only as symptoms dictate or routine follow-ups suggest. Discussion regarding healthcare proxy and advanced directives was initiated. Patient was informed and verbally consented to the use of an ambient scribe for clinic note documentation during this visit. Discussion Notes During the visit, we reviewed her progress regarding osteopenia, emphasizing the benefits of her active lifestyle and resistance training in reversing the diagnosis. We addressed the management of her hyperlipidemia with ongoing rosuvastatin use, discussing its role in maintaining optimal cholesterol levels. The importance of cataract monitoring was highlighted in coordination with her septic pump truck driver. I discussed strategies for managing symptoms of tinnitus and occasional neck- related headaches, including staying active. For her dermatological condition, we highlighted antifungal management for athlete's foot. We initiated a conversation regarding healthcare management documents, encouraging her to consider establishing a healthcare proxy and advance directives. Follow-up care locations, such as the [facility] for exercise, were suggested to remain uninterrupted. Documentation needs regarding healthcare forms are acknowledged without immediate requirement. Patient Instructions - Continue taking rosuvastatin as prescr ibed - Maintain active lifestyle including ca rdio and resistance exercises - Follow-up with an septic pump truck driver rega rding cataracts as advised - Use antifungal treatments for athlete' s foot; maintain foot hygiene - Consider establishing a healthcare pro xy and advance directive - Keep up with regular health screenings and dietary habits - Avoid smoking and limit alcohol to soc ial occasions only PFSH Medical History (Updated 09/04/24 @ 17:15 by AMBROCIO Clemente) Encounter for well woman exam with routine gynecological exam Osteopenia Basal cell carcinoma (BCC) in situ of skin High cholesterol Surgical History H/O colonoscopy (~04/09/24) History of breast biopsy H/O left wrist surgery History of knee surgery H/O cone biopsy of cervix History of Family History (Updated 09/04/24 @ 13:32 by Jocelyne Riggins MA) Father CHF (congestive heart failure) Mother CHF (congestive heart failure) Heart attack Social History Housing: House Are you a primary group care worker to a significant other at home: No Do you presently have visiting nurse or other home services: No Alcohol intake: current Alcohol intake frequency: a few times a month Alcohol type: wine Patient Tobacco Use Status: Never used Tobacco e-Cigarette/Vaping Use: Never Used service: No Current occupational status: employed Gender identity: Female Cognitive needs: No Hearing needs: No Vision needs: Yes (reading glasses) Female Reproductive History Menstrual Age of Menarche: 11 Questionnaire PHQ-9 Over the last 2 weeks, how often have you been bothered by any of the following problems? 1. Little interest or pleasure in doing things: not at all 2. Feeling down, depressed, or hopeless: not at all 3. Trouble falling or staying asleep, or sleeping too much: not at all 4. Feeling tired or having little energy: not at all 5. Poor appetite or overeating: not at all 6. Feeling bad about yourself - or that you are a failure or have let yourself or your family down: not at all 7. Trouble concentrating on things, such as reading the newspaper or watching television: not at all 8. Moving or speaking so slowly that other people could have noticed. Or the opposite - being so fidgety or restless that you have been moving around a lot more than usual: not at all 9. Thoughts that you would be better off or of hurting yourself in some way: not at all Total score: 0 Source: Developed by Drs. Dwayne Evans, Tomasa Brady, Rajeev Chacko and colleagues, with an educational modesto from [employer]. Thrive Questionnaire Date Thrive assessed: 09/04/24 I am a: Patient Within the past 12 months, did the food you bought not last and you didn't have the money to get more?: Never true Within the past 12 months, did you worry whether your food would run out before you got money to buy more?: Never true Do you have trouble paying for medicines?: No Do you have trouble getting transportation to medical appointments?: No Do you have trouble paying your heating and electricity bill?: No Do you have trouble taking care of your child, family member or friend?: No Do you have trouble with day-to-day activities such as bathing, preparing meals, shopping, managing finances, etc.?: No Are you currently unemployed and looking for a job?: No Are you interested in more education?: No THRIVE Score: 0 AUDIT C Alcohol Use Questionnaire (AUDIT-C) 1. How often do you have a drink containing alcohol?: Monthly or less 2. How many drinks containing alcohol do you have on a typical day when you are drinking?: 1 or 2 3. How often do you have six or more drinks on one occasion?: Less than monthly Total Score: 2 NASIR-7 AMB Questionnaire NASIR-7 Date NASIR - 7 assessed: 09/04/24 Feeling nervous, anxious, or on edge: 0 = Not at all Not being able to stop or control worryin = Not at all Worrying too much about different things: 0 = Not at all Trouble relaxin = Not at all Being so restless that it is hard to sit still: 0 = Not at all Becoming easily annoyed or irritable: 0 = Not at all Feeling afraid as if something awful might happen: 0 = Not at all Total NASIR-7 score (0-4 normal; 5-9 mild; 10-14 moderate; 15-21 severe): 0 Source: Developed by Drs. Dwayne Evans, Tomasa Brady, Rajeev Chacko and colleagues, with an educational modesto from [employer]. Physical exam (Primary Care) Vital Signs: Last Vital Signs Temp 97.8 F 09/04/24 13:19 Pulse 62 09/04/24 13:19 BP 122/80 09/04/24 13:19 Pulse Ox 99 09/04/24 13:19 Oxygen Delivery Method Room Air 09/04/24 13:19 BMI result Body Mass Index 26.1 Tobacco/Smoking Status: Tobacco use Status Tobacco use date assessed 09/04/24 09/04/24 13:21 Patient Tobacco Use Status Never used Tobacco 09/04/24 13:19 e-Cigarette/Vaping Use Never Used 09/04/24 13:21 PHQ-9: PHQ-9 Score PHQ-9: Total score 0 09/04/24 13:45 Thrive Assessment: Date of Thrive Assessment Date Thrive assessed 09/04/24 09/04/24 13:21 Coding Level of Care Code New Pt Level 4 (07342) Complex EM visit Add On G2211 Diagnoses Osteopenia M85.80 High cholesterol E78.00 Tinea pedis B35.3 Assessment & Plan Assessment & Plan (1) Osteopenia: Code(s): M85.80 - Other specified disorders of bone density and structure, unspecified site Category: Medical Plan: Resolved on review of most recent DEXA scan. Continue calcium and vitamin-D as well as ongoing weight-bearing exercise. (2) High cholesterol: Code(s): E78.00 - Pure hypercholesterolemia, unspecified Category: Medical Plan: Controlled. Last LDL 66. Continue rosuvastatin (3) Tinea pedis: Code(s): B35.3 - Tinea pedis Category: Medical Plan: Limited relief with Lotrimin. Recommend nystatin powder Plan Follow-up in 6 months for annual wellness visit
--- OUTSIDE RECORDS SUMMARY | 2024-09-04 13:34 | XMS_ITS | Patient Health Record ---
[facility] Address [address] [facility] [place] [address] Care Team Providers Care Director Asset Name Role Phone Jesus Potts MD Primary Care Provider Unavaila ble Black, Diana Unavailable [phone] Allergies Allergen (clinical drug ingredient) Drug/Non Drug [...] Vitamin B Complex Ac tive Probiotic Active [place] 3 Not-Taking Vitamin D Active Multivitamin Active [...] Status Risk Notes Problem Acquired hallux valgus (43300746) Hallux valgus (acquired), left foot (M20.12) Active confirmed Problem Acquired hallux valgus (54291662) Hallux valgus (acquired), right foot (M20.11) Active confirmed Plan Of Treatment Pending Test Test Name Order Date X ray : Foot, right 3V 01/01/2022 [id number] NAIL, 1-01/01/2022 [id number] Destruction, -01/01/2022 Insurance Providers Payer Name Payer Address Payer Phone Subscriber Number Group Number Insured Name Patient Relationship to Insured Coverage Start Date Coverage End Date [facility] [address] [place] [address] [phone] [id number] Romelia Cabral Self - patient is the insured Medical (General) History Medical History History ICD Code Cancer Seasonal allergies Surgical History Surgery Date(Month/Year) torn meniscus 06/2017 Broken wrist 06/2015 remove metal plate 10/2017
== END 2024-09-04 14:02 | disposition home or self-care (01) ==
LOC: HO.HMCHD 13:12
PROVIDERS: PCP Physician Assistant; Visit Provider Internal Medicine
DX: M85.80 Other specified disorders of bone density and structure, unspecified site (principal); E78.00 Pure hypercholesterolemia, unspecified; B35.3 Tinea pedis

== ENCOUNTER → 2024-09-04 13:11 | Outpatient (BNVA) | payer MEDICARE, SELFPAY | PROVIDERS: PCP Internal Medicine; Visit Provider Internal Medicine | DX: E78.5 Hyperlipidemia, unspecified (principal); M85.80 Other specified disorders of bone density and structure, unspecified site; E78.00 Pure hypercholesterolemia, unspecified; B35.3 Tinea pedis; Z79.899 Other long term (current) drug therapy | CPT/HCPCS: 96127; 99202 ==

== ENCOUNTER 2024-12-10 13:14 | Outpatient (REF) | payer MEDICARE, SELFPAY ==
--- NOTE | ~2024-12-10 | XR_ITS ---
CLINICAL HISTORY: M54.2 - Cervicalgia 5 views cervical spine Comparison: None provided Findings: Normal alignment. No acute fractures or dislocation. Multilevel disc height loss with reactive endplate change and osteophyte formation. Multilevel facet hypertrophy. Disc height loss is greatest at C4-5. Mild osseous neural foraminal narrowing at C4-5 bilaterally. No prevertebral soft tissue swelling. IMPRESSION: Multilevel degenerative changes greatest at C4-5. Consider MRI if there are radicular symptoms. This document has been electronically signed by: Laya Corral MD on 12/11/2024 08:40:54
== END 2024-12-10 13:15 | disposition home or self-care (01) ==
LOC: HO.XRAY 13:14
PROVIDERS: PCP Physician Assistant; Visit Provider Internal Medicine
DX: M54.2 Cervicalgia (principal); R42 Dizziness and giddiness; H93.19 Tinnitus, unspecified ear; H53.2 Diplopia
CPT/HCPCS: 72050; 99212

== ENCOUNTER 2024-12-10 13:14 | Outpatient (AMB) | payer MEDICARE, SELFPAY ==
--- NOTE | 2024-12-10 13:14 | MHC.PC.OV ---
Vital Signs 12/10/24 13:18 12/10/24 13:19 Height 5 ft 4 in Weight 151 lb BP 146/80 H Blood Pressure Location Lt brachial Position Sitting Respiration 16 Pulse 76 Pulse Source Pulse Oximeter Temp 97.6 F Temp Source Temporal Artery Scan Pulse Oximetry (%) 99 Oxygen Delivery Method Room Air Intake Visit Reasons: dizzy and double vision on 12/07 Senior Manager [employer] Required: No Accompanied by: Self / Same As Patient Allergies acetaminophen (From Roxicet) Allergy (Severe, Verified 12/10/24 13:14) Rash house dust Allergy (Severe, Verified 12/10/24 13:14) Unknown oxycodone (From Roxicet) Allergy (Severe, Verified 12/10/24 13:14) Rash dust,pollen Allergy (Unknown, Uncoded 04/09/24 09:52) unknown enviromental allergies Allergy (Unknown, Uncoded 04/09/24 09:52) Unknown Tobacco use date assessed: 09/04/24 Dental Screening Dental Screen Date: 09/04/24 HPI HPI Comments History of Present Illness Details The patient is a 68-year-old female with a past medical history of hyperlipidemia, tinnitus, OA presenting for acute visit. Patient was in the grocery store 12/07. She suddenly developed double vision and vertigo. She had bent her head down look at something. to this she had been a mattress store and measuring with her head in different positions. This lasted 1-2 minutes and subsided. Longstanding tinnitus. Infrequent headaches. CV: On rosuvastatin MSK: Frequent neck pain, muscle spasm, crunching . history of meniscus tear, without needing further surgery. Mild constipation is occasional and controlled by dietary adjustment. ROS see HPI PHYSICAL EXAM: GENERAL: Alert and oriented x 3. NAD EYES: EOMI. Anicteric. HENT: Moist mucous membranes. No scleral icterus. No cervical lymphadenopathy. EOMI. No nystagmus LUNGS: Clear to auscultation bilaterally. CARDIOVASCULAR: Regular rate and rhythm. No murmur. No JVD. No carotid bruits ABDOMEN: Soft, non-tender +bs EXTREMITIES: No edema. Non-tender. SKIN: No rashes or lesions. Warm. NEUROLOGIC: No focal neurological deficits. CN II-XII grossly intact PSYCHIATRIC: Cooperative. Appropriate mood and affect [facility] Medical History Encounter for well woman exam with routine gynecological exam Osteopenia Basal cell carcinoma (BCC) in situ of skin High cholesterol Surgical History H/O colonoscopy (~04/09/24) History of breast biopsy H/O left wrist surgery History of knee surgery H/O cone biopsy of cervix History of Family History Father CHF (congestive heart failure) Mother CHF (congestive heart failure) Heart attack Social History Housing: House Are you a primary client care specialist to a significant other at home: No Do you presently have visiting nurse or other home services: No Alcohol intake: current Alcohol intake frequency: a few times a month Alcohol type: wine Patient Tobacco Use Status: Never used Tobacco e-Cigarette/Vaping Use: Never Used service: No Current occupational status: employed Gender identity: Female Cognitive needs: No Hearing needs: No Vision needs: Yes (reading glasses) Female Reproductive History Menstrual Age of Menarche: 11 Questionnaire Thrive Questionnaire Date Thrive assessed: 09/04/24 NASIR-7 AMB Questionnaire NASIR-7 Date NASIR - 7 assessed: 09/04/24 Source: Developed by Drs. Dwayne Evans, Tomasa Brady, Rajeev Chacko and colleagues, with an educational modesto from [employer]. Physical exam (Primary Care) Vital Signs: Last Vital Signs Temp 97.6 F 12/10/24 13:19 Pulse 76 12/10/24 13:19 Resp 16 12/10/24 13:19 BP 146/80 H 12/10/24 13:19 Pulse Ox 99 12/10/24 13:19 Oxygen Delivery Method Room Air 12/10/24 13:19 Tobacco/Smoking Status: Tobacco use Status Tobacco use date assessed 09/04/24 12/10/24 13:15 Patient Tobacco Use Status Never used Tobacco 12/10/24 13:15 e-Cigarette/Vaping Use Never Used 12/10/24 13:15 Thrive Assessment: Date of Thrive Assessment Date Thrive assessed 09/04/24 12/10/24 13:15 Coding Level of Care Code Est Pt Level 4 (45318) Complex EM visit Add On G2211 Diagnoses Tinnitus, unspecified laterality H93.19 Laterality: unspecified laterality Vertigo R42 Double vision H53.2 Assessment & Plan Assessment & Plan (1) Tinnitus: Code(s): H93.19 - Tinnitus, unspecified ear Category: Medical Qualifiers: Laterality: unspecified laterality Qualified Code(s): H93.19 - Tinnitus, unspecified ear (2) Vertigo: Code(s): R42 - Dizziness and giddiness Category: Medical (3) Double vision: Code(s): H53.2 - Diplopia Plan 69 year old for double vision, vertigo. It has since resolved. Episode described as severe Chronic tinnitus Carotid u/s, MRI Neck pain-xray ordered Orders: Orders US carotid duplex BI Today H93.19 - Tinnitus, unspecified ear, R42 - Dizziness and giddiness MR head/brain wo con Today H53.2 - Diplopia, H93.19 - Tinnitus, unspecified ear, R42 - Dizziness and giddiness XR cervical spine 4V Today M54.2 - Cervicalgia
--- OUTSIDE RECORDS SUMMARY | 2024-12-10 13:17 | XMS_ITS | Patient Health Record ---
[facility] Address [address] [place] [address] Care Team Providers Care Cadmium Liquor Maker Name Role Phone Jesus Potts MD Primary Care Provider Unavaila ble Black, Diana Unavailable [phone] Allergies Allergen (clinical drug ingredient) Drug/Non Drug Allergy documented on EMR Reaction Allergy Type Onset Date Status Roxicet Unknown Drug Allergy Active Seasonale Unknown Drug Allergy Active Reason For Referral No Information Medications Medication SIG (Take, Route, Frequency, Duration) Notes Start Date End Date Status Fish Oil Active Rosuvastatin Calcium 10 MG 1 tablet Orally Once a day; Duration: 30 day(s) Active Loratadine 10 MG 1 tablet Orally Once a day; Duration: 30 day(s) Active Vitamin B Complex Ac tive Probiotic Active [place] 3 Not-Taking Vitamin D Active Multivitamin Active [...] Status Risk Notes Problem Acquired hallux valgus (84145588) Hallux valgus (acquired), left foot (M20.12) Active confirmed Problem Acquired hallux valgus (18712392) Hallux valgus (acquired), right foot (M20.11) Active confirmed Plan Of Treatment Pending Test Test Name Order Date X ray : Foot, right 3V 01/01/2022 [id number] NAIL, 1-01/01/2022 [id number] Destruction, 1-14 01/01/2022 Insurance Providers Payer Name Payer Address Payer Phone Subscriber Number Group Number Insured Name Patient Relationship to Insured Coverage Start Date Coverage End Date [facility] [address] [place] [address] [phone] [id number] Romelia Cabral Self - patient is the insured Medical (General) History Medical History History ICD Code Cancer Seasonal allergies Surgical History Surgery Date(Month/Year) torn meniscus 06/2017 Broken wrist 06/2015 remove metal plate 10/2017
[2024-12-10 13:19] VITALS: BP 146/80; PULSE 76; RESP 16; TEMP 36.4; O2SAT 99
== END 2024-12-10 13:35 | disposition home or self-care (01) ==
LOC: HO.HMCHD 13:15
PROVIDERS: PCP Physician Assistant; Visit Provider Internal Medicine
DX: H93.19 Tinnitus, unspecified ear (principal); R42 Dizziness and giddiness; H53.2 Diplopia

== ENCOUNTER → 2024-12-10 13:46 | Outpatient (BNV) | payer MEDICARE, SELFPAY | PROVIDERS: PCP Physician Assistant; Visit Provider Radiology Diagnostic Radiology | DX: M54.2 Cervicalgia (principal) | CPT/HCPCS: 72050 ==

== ENCOUNTER → 2024-12-28 13:38 | Outpatient (BNV) | payer MEDICARE, SELFPAY | PROVIDERS: PCP Physician Assistant; Visit Provider Radiology Diagnostic Radiology | DX: R42 Dizziness and giddiness (principal) | CPT/HCPCS: 70553 ==

== ENCOUNTER 2024-12-28 13:47 | Outpatient (REF) | payer MEDICARE, SELFPAY ==
--- NOTE | ~2024-12-28 | MR_ITS ---
EXAMINATION: MR BRAIN AND IAC'S WITHOUT AND WITH CONTRAST CLINICAL INFORMATION: 69-year-old female complaining of tinnitus, episode of blurry vision and dizziness which resolved approximately 3 weeks before. COMPARISON: None available. TECHNIQUE: Multiplanar, multisequence MRI of the brain and IAC's was obtained before and after the intravenous administration of 7 mL Gadavist. Examination was performed on a 1.5 Emily Siemens high-field unit. FINDINGS: IACs: There is normal CSF signal within the CP angle cisterns, prepontine cistern, IACs, and labyrinthine structures. The 7th and 8th nerve complexes are normal in course and caliber. There is no abnormal contrast enhancement present. The 5th nerves are normal in course and caliber. Meckel's caves have normal CSF signal. The 3rd, 4th, and 6th cranial nerves have normal course and caliber. The mastoids and tympanic cavities demonstrate normal signal. BRAIN: There is no diffusion restriction. There is no intracranial hemorrhage, acute infarction, mass effect, or edema. No extra-axial collection. Ventricles, sulci, and cisterns are somewhat diffusely prominent, in keeping with mildly age advanced cerebral and cerebellar volume loss. There is mild prominence of the left central sulcus. No shift of midline. No abnormal hemosiderin deposition is identified. There are a few scattered punctate and minimally confluent foci of white matter T2 hyperintensity in the periventricular, subcortical, and hemispheric deep white matter. These foci are nonspecific but statistically most likely reflects small vessel ischemic changes. 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 No pathologic contrast enhancement is present. Midline structures appear normally formed. The pituitary gland appears normal. Posterior fossa structures appear normal. Cerebellar tonsils are appropriately located. Major flow voids are preserved within the skull base. The globes and orbital contents demonstrate no abnormalities. Paranasal sinuses are clear bilaterally. Extracranial soft tissues demonstrate no abnormalities. No suspicious bone marrow changes are evident. Mild TM joint degenerative changes are present. Atlantoaxial joint demonstrates moderate degenerative changes. MR/MR head/brain wo/w con IMPRESSION: 1. No evidence of intracranial hemorrhage, acute infarction, mass effect, or edema. 2. 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 There is no pathologic contrast enhancement. 3. There are mild small vessel ischemic changes. 4. There is mildly age advanced cerebral and cerebellar volume loss. 5. There is no mass, abnormal signal, or abnormal enhancement within the IACs or basal cisterns. The 7th and 8th cranial nerves have normal course and caliber. Electronically signed by: Lev Gunter MD 12/28/2024 03:04 PM EDT
--- OUTSIDE RECORDS SUMMARY | 2024-12-28 15:06 | XMS_ITS | Patient Health Record ---
[facility] Address [address] [place] [address] Care Team Providers Care Tree Farmer Name Role Phone Jesus Potts MD Primary Care Provider Unavaila ble Black, Diana Unavailable [phone] Allergies Allergen (clinical drug ingredient) Drug/Non Drug [...] Vitamin B Complex Ac tive Probiotic Active [place] 3 Not-Taking Vitamin D Active Multivitamin Active [...] Status Risk Notes Problem Acquired hallux valgus (43402472) Hallux valgus (acquired), left foot (M20.12) Active confirmed Problem Acquired hallux valgus (78483115) Hallux valgus (acquired), right foot (M20.11) Active confirmed Plan Of Treatment Pending Test Test Name Order Date X ray : Foot, right 3V 01/01/2022 [id number] NAIL, 1-01/01/2022 [id number] Destruction, 1-14 01/01/2022 Insurance Providers Payer Name Payer Address Payer Phone Subscriber Number Group Number Insured Name Patient Relationship to Insured Coverage Start Date Coverage End Date [facility] [address] [place] [address] [phone] [id number] Romelia Cabral Self - patient is the insured Medical (General) History Medical History History ICD Code Cancer Seasonal allergies Surgical History Surgery Date(Month/Year) torn meniscus 06/2017 Broken wrist 06/2015 remove metal plate 10/2017
== END 2024-12-28 13:48 | disposition home or self-care (01) ==
LOC: HO.MRI 13:47
PROVIDERS: PCP Physician Assistant; Visit Provider Internal Medicine
DX: R42 Dizziness and giddiness (principal); H53.2 Diplopia; H93.19 Tinnitus, unspecified ear
CPT/HCPCS: 70553; A9585

== ENCOUNTER 2024-12-31 15:21 | Outpatient (REF) | payer MEDICARE, SELFPAY ==
--- NOTE | ~2024-12-31 | US_ITS ---
EXAMINATION: US EXTRACRANIAL CAROTID DUPLEX, BILATERAL CLINICAL INFORMATION: H93.19 - Tinnitus, unspecified eard COMPARISON: None available. TECHNIQUE: Real-time ultrasound and Doppler techniques (integrating B-mode 2-D vascular images, Doppler spectral analysis and color-flow Doppler imaging) were utilized to interrogate the extracranial carotid arteries, the vertebral arteries and proximal subclavian arteries bilaterally. The degree of stenosis is determined by criteria similar to NASCET. FINDINGS: Right Side: 1. There is no atherosclerotic plaque seen in the bifurcation/proximal ICA region. 2. The common carotid artery PSV proximally is 83 cm/s and distally 75 cm/s. 3. The proximal internal carotid artery velocities are 58 cm/s systolic and 16 cm/s diastolic. 4. The proximal external carotid artery PSV is 96 cm/s. 5. The vertebral artery shows antegrade flow. 6. The subclavian artery waveforms are biphasic. ICA/CCA ratio = 0.9 Left Side: 1. There is minimal atherosclerotic plaque seen in the bifurcation/proximal ICA region. 2. The common carotid artery PSV proximally is 104 cm/s and distally 67 cm/s. 3. The proximal internal carotid artery velocities are 61 cm/s systolic and 17 cm/s diastolic. 4. The proximal external carotid artery PSV is 57 cm/s. 5. The vertebral artery shows antegrade flow. 6. The subclavian artery waveforms are triphasic. ICA/CCA ratio = 0.6 US/US carotid duplex BI IMPRESSION: 1. RIGHT: Hemodynamically significant stenosis 2. LEFT: No hemodynamically significant stenosis 3. There is no change in the category severity of disease when compared to the previous study dated . Electronically signed by: Shan Merchant MD 12/31/2024 04:02 PM EDT
--- OUTSIDE RECORDS SUMMARY | 2024-12-31 15:52 | XMS_ITS | Patient Health Record ---
[facility] Address [address] [place] [address] Care Team Providers Care Mill Crane Operator Name Role Phone Jesus Potts MD Primary Care Provider Unavaila ble Black, Diana Unavailable [phone] Allergies Allergen (clinical drug ingredient) Drug/Non Drug [...] Vitamin B Complex Ac tive Probiotic Active [place] 3 Not-Taking Vitamin D Active Multivitamin Active [...] Status Risk Notes Problem Acquired hallux valgus (35167055) Hallux valgus (acquired), left foot (M20.12) Active confirmed Problem Acquired hallux valgus (22870745) Hallux valgus (acquired), right foot (M20.11) Active confirmed Plan Of Treatment Pending Test Test Name Order Date X ray : Foot, right 3V 01/01/2022 [id number] NAIL, 1-01/01/2022 [id number] Destruction, 1-14 01/01/2022 Insurance Providers Payer Name Payer Address Payer Phone Subscriber Number Group Number Insured Name Patient Relationship to Insured Coverage Start Date Coverage End Date [facility] [address] [place] [address] [phone] [id number] Romelia Cabral Self - patient is the insured Medical (General) History Medical History History ICD Code Cancer Seasonal allergies Surgical History Surgery Date(Month/Year) torn meniscus 06/2017 Broken wrist 06/2015 remove metal plate 10/2017
== END 2024-12-31 15:22 | disposition home or self-care (01) ==
LOC: HO.US 15:21
PROVIDERS: PCP Physician Assistant; Visit Provider Internal Medicine
DX: H93.19 Tinnitus, unspecified ear (principal); R42 Dizziness and giddiness
CPT/HCPCS: 93880

== ENCOUNTER → 2024-12-31 15:23 | Outpatient (BNV) | payer MEDICARE, SELFPAY | PROVIDERS: PCP Physician Assistant; Visit Provider Radiology Diagnostic Radiology | DX: I65.21 Occlusion and stenosis of right carotid artery (principal) | CPT/HCPCS: 93880 ==

== ENCOUNTER → 2025-01-08 14:29 | Outpatient (AMB) | payer MEDICARE, SELFPAY ==
[2025-01-08 14:39] VITALS: BP 132/74; PULSE 68; O2SAT 97; BMI 25.6
--- NOTE | 2025-01-08 14:39 | MHC.OFFVIS ---
Vital Signs 01/08/25 14:39 Height 5 ft 4 in Weight 67.585 kg BMI 25.6 BP 132/74 Blood Pressure Location Lt brachial Position Sitting Pulse 68 Pulse Source Pulse Oximeter Pulse Oximetry (%) 97 Oxygen Delivery Method Room Air Intake Visit Reasons: f/u re: MRI/US Intake Note: Patient presents for follow up on MRI and ultrasound results, and neck x-ray. Allergies acetaminophen (From Roxicet) Allergy (Severe, Verified 01/08/25 14:43) Rash house dust Allergy (Severe, Verified 01/08/25 14:43) Unknown oxycodone (From Roxicet) Allergy (Severe, Verified 01/08/25 14:43) Rash dust,pollen Allergy (Unknown, Uncoded 01/08/25 14:43) unknown enviromental allergies Allergy (Unknown, Uncoded 01/08/25 14:43) Unknown HPI Comments Details: 68-year-old female with a past medical history of hyperlipidemia, tinnitus, OA presented to the office today for follow-up. About 1 month ago she had a brief episode of double vision as well as dizziness. She states that this was worse with head movements bending head down and then looking up at something. She states she felt off balance but does not feel like this was vertigo. The double vision lasted no longer than a minute. She does have longstanding tinnitus and infrequent headaches. At last visit, MRI of the brain, carotid ultrasound, cervical spine x-ray was performed. Results reviewed with the patient. MRI of the brain negative for any acute intracranial abnormality but does show some small-vessel disease. Cranial nerves normal. Incidental finding including left frontal CVA. Carotid ultrasound negative for any hemodynamically significant stenosis. X-ray of the cervical spine shows multilevel degenerative disc disease. She denies any radicular symptoms. She has also been experiencing intermittent left-sided headaches described as pressure when she pushes down on the area. She does have some anxiety but does not feel this is any different than her baseline. Since then has had no recurrent episodes. ROS: See HPI EXAM: Constitutional - Awake and Alert, No apparent distress Eyes - PERRL Neck-no midline or paraspinal tenderness to palpation Cardiovascular - S1S2, RRR, No edema Respiratory - Normal lung expansion, Normal respiratory effort, No respiratory distress, CTA bilaterally Extremities - no calf tenderness bilaterally, no swelling Skin - Warm/Dry Neurological - Alert & oriented x3. Flight horizontal nystagmus, otherwise CN II-XII wnl Psychological - Appropriate [facility] History Encounter for well woman exam with routine gynecological exam Osteopenia Basal cell carcinoma (BCC) in situ of skin High cholesterol Surgical History H/O colonoscopy (~04/09/24) History of breast biopsy H/O left wrist surgery History of knee surgery H/O cone biopsy of cervix History of Family History Father CHF (congestive heart failure) Mother CHF (congestive heart failure) Heart attack Social History Housing: House Are you a primary geriatric personal care aide to a significant other at home: No Do you presently have visiting nurse or other home services: No Alcohol intake: current Alcohol intake frequency: a few times a month Alcohol type: wine Patient Tobacco Use Status: Never used Tobacco e-Cigarette/Vaping Use: Never Used service: No Current occupational status: employed Gender identity: Female Cognitive needs: No Hearing needs: No Vision needs: Yes (reading glasses) Female Reproductive History Menstrual Age of Menarche: 11 Physical Exam Vital Signs: Last Vital Signs Pulse 68 01/08/25 14:39 BP 132/74 01/08/25 14:39 Pulse Ox 97 01/08/25 14:39 Oxygen Delivery Method Room Air 01/08/25 14:39 BMI result Body Mass Index 25.6 Assessment & Plan Assessment & Plan (1) Diplopia: Code(s): H53.2 - Diplopia Category: Medical Plan: No recurrent episodes. Possibly related to orthostasis given fleeting nature and is accompanied by lightheadedness. Monitor for recurrent symptoms. Also recommend follow-up with fitness floor attendant (2) Headache: Code(s): R51.9 - Headache, unspecified Category: Medical Plan: Likely tension in nature. Can use Tylenol or ibuprofen as needed. Also stress management (3) Dizziness: Code(s): R42 - Dizziness and giddiness Category: Medical Plan: As above Plan Follow-up in the office for annual physical exam. Reviewed MRI brain, carotid ultrasound, cervical spine x-ray with patient Reassurance offered Coding Level of Care Code Est Pt Level 4 (82910) Diagnoses Diplopia H53.2 Headache R51.9 Dizziness R42
--- OUTSIDE RECORDS SUMMARY | 2025-01-08 14:50 | XMS_ITS | Patient Health Record ---
[facility] Address [address] [place] [address] Care Team Providers Care Paint Laboratory Technician Name Role Phone Jesus Potts MD Primary Care Provider Unavaila ble Black, Diana Unavailable [phone] Allergies Allergen (clinical drug ingredient) Drug/Non Drug [...] Vitamin B Complex Ac tive Probiotic Active [place] 3 Not-Taking Vitamin D Active Multivitamin Active [...] Status Risk Notes Problem Acquired hallux valgus (87981350) Hallux valgus (acquired), left foot (M20.12) Active confirmed Problem Acquired hallux valgus (84517855) Hallux valgus (acquired), right foot (M20.11) Active confirmed Plan Of Treatment Pending Test Test Name Order Date X ray : Foot, right 3V 01/01/2022 [id number] NAIL, 1-01/01/2022 [id number] Destruction, 1-14 01/01/2022 Insurance Providers Payer Name Payer Address Payer Phone Subscriber Number Group Number Insured Name Patient Relationship to Insured Coverage Start Date Coverage End Date [facility] [address] [place] [address] [phone] [id number] Romelia Cabral Self - patient is the insured Medical (General) History Medical History History ICD Code Cancer Seasonal allergies Surgical History Surgery Date(Month/Year) torn meniscus 06/2017 Broken wrist 06/2015 remove metal plate 10/2017
== END ==
LOC: HO.HMCHD 14:30
PROVIDERS: PCP Physician Assistant; Visit Provider Physician Assistant
DX: H53.2 Diplopia (principal); R51.9 Headache, unspecified; R42 Dizziness and giddiness

== ENCOUNTER → 2025-01-08 14:29 | Outpatient (BNVA) | payer MEDICARE, SELFPAY | PROVIDERS: PCP Physician Assistant; Visit Provider Physician Assistant | DX: H53.2 Diplopia (principal); R42 Dizziness and giddiness; H93.19 Tinnitus, unspecified ear; R51.9 Headache, unspecified | CPT/HCPCS: 99212 ==

== ENCOUNTER 2025-03-26 14:55 | Outpatient (AMB) | payer MEDICARE, SELFPAY ==
--- NOTE | 2025-03-26 14:59 | A.OFFVIS_ITS ---
Vital Signs 03/26/25 15:10 Height 5 ft 4 in Weight 151 lb BMI 25.9 BP 116/76 Blood Pressure Location Rt brachial Position Sitting Intake Visit Reasons: PHYSICIAN EXTENDER annual exam Intake Note: here for power saw operator annual. no concerns Palletiser Operator Required: No Information Interpreted: non-clinical & clinical Director Consumer Affairs: Director Consumer Affairs Present (Jolene Askew LPN) Accompanied by: Self / Same As Patient Allergies acetaminophen (From Roxicet) Allergy (Severe, Verified 01/08/25 14:43) Rash house dust Allergy (Severe, Verified 01/08/25 14:43) Unknown oxycodone (From Roxicet) Allergy (Severe, Verified 01/08/25 14:43) Rash dust,pollen Allergy (Unknown, Uncoded 01/08/25 14:43) unknown enviromental allergies Allergy (Unknown, Uncoded 01/08/25 14:43) Unknown Medication List - Last Reconciled 03/26/25 by Jolene Askew LPN cholecalciferol (vitamin D3) 50 mcg PO DAILY lactobacillus combination no.4 (Probiotic) 3,000 mmu cells PO DAILY loratadine (Allergy Relief (loratadine)) 10 mg PO DAILY multivitamin 1 tab PO DAILY go-2-bti-epa-fish oil-vit D3 120 mg-180 mg -1,000 unit caps PO rosuvastatin 10 mg PO DAILY vitamin B complex 1 tab PO DAILY Do you need a note to return to daycare/school/sports/work: No HPI Comments Details: Pt presents today for ANNUAL exam She has the following concerns: none, though she does report intermittent stress incontinence, wears liners as needed She is in a relationship x >40, but they live separately. Exercise: 3-5 times a week Nutrition/calcium: adequate intake Contraception: post menopausal and denies any abnormal vaginal bleeding Last Pap: N/A Last mammo: 2024, Bone Density 2022- [facility] Medical History Encounter for well woman exam with routine gynecological exam Osteopenia Basal cell carcinoma (BCC) in situ of skin High cholesterol Surgical History H/O colonoscopy (~04/09/24) History of breast biopsy H/O left wrist surgery History of knee surgery H/O cone biopsy of cervix History of Family History Father CHF (congestive heart failure) Mother CHF (congestive heart failure) Heart attack Daughter No problems noted. 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 Gender identity: Female Cognitive needs: No Hearing needs: No Vision needs: Yes (reading glasses) Female Reproductive History Menstrual Age of Menarche: 11 Total pregnancies: 1 Number of Living Children: 1 History of abnormal pap smear: Yes Date of Mammogram: 07/08/24 History of abnormal mammogram: Yes Review of Systems Const Reports no additional complaints Eyes Reports no additional complaints ENT Reports no additional complaints Card Reports no additional complaints Resp Reports no additional complaints GI Reports no additional complaints Reports as per [facility] Skin/Breast Reports system reviewed and no additional complaints, except as documented Physical Exam Vital Signs: Last Vital Signs BP 116/76 03/26/25 15:10 BMI result Body Mass Index 25.9 Const General: cooperative, healthy appearing and no acute distress Orientation/consciousness: patient oriented x3 HEENT Head: Yes normal to inspection and Yes normocephalic Ears: external ears normal General nose exam: Normal external nose present Neck Neck: Yes normal visual inspection Chest Breast/axilla inspection: normal inspection of the breasts, normal inspection of the axillae and Other (No skin changes, peau d orange, or nipple discharge noted) Breast/axilla palpation: normal palpation of the breasts, normal palpation of the axillae and no axillary lymphadenopathy Resp Effort & Inspection: normal respiratory effort and able to speak in complete sentences GI Inspection: No distended Palpation (GI): Soft to palpation, nontender and no masses Percussion: Yes normal to percussion Rectal Exam - Female: No External hemorrhoid(s) present External Female Exam: normal external appearance and normal appearance of the urethra Speculum Exam - Vagina: normal appearance of the vagina, normal vaginal discharge and vagina atrophic Speculum Exam - Cervix: normal appearance of the cervix and normal palpation (neg CMT) Bimanual exam- vagina & uterus: normal bimanual exam, normal palpation (neg CMT), uterine mobility normal and non-tender Bimanual Exam- Adnexa, other: no masses and No adnexal tenderness Skin General skin exam: no rashes or lesions noted Neuro General: patient oriented x3 and moves all extremities Extrem General: Yes full ROM Psych Speech and movement: Normal speech and movement present Affect: normal affect Attitude: cooperative Thought process: Normal thought process present Assessment & Plan Assessment & Plan (1) Well woman exam with routine gynecological exam: Code(s): Z01.419 - Encounter for gynecological examination (general) (routine) without abnormal findings (2) Post-menopausal: Code(s): Z78.0 - Asymptomatic menopausal state (3) Screening breast examination: Code(s): Z12.39 - Encounter for other screening for malignant neoplasm of breast Plan During the visit, the following areas of concern were addressed: Regular exercise Healthy lifestyle Domestic violence Health Maintenance and Screening -Reviewed ASCCP guidelines for Paps and yearly (bi-yearly ) pelvic exam. -Reviewed and encouraged diet and exercise for cardiovascular and bone health -Reviewed breast self-awareness. Importance of yearly mammogram after age 40 (earlier if first-degree relative with breast cancer at a younger age ) Discuss use of 3 times per week weight-bearing exercise, vitamin D3 and servings of dietary calcium daily for bone health. -continue to follow with PCP for general medical care, immunizations. Screening strategies for colon cancer after age 50- completed. Discussion of Kegel exercises for urinary incontinence Family and personal history of cancer reviewed. Genetic screening - not indicated Cont exercise regime strength training low weight bearing exercises, including burning more calories than one takes in by frequent, small meals, portion control, avoiding eating before bedtime, RTO one year or sooner prn Aria Rodríguez CNM Note about provider documentation : If you or the patient named in this chart and are reviewing your medical notes, please note that medical documentation is often written with abbreviations and medical terminology, and directed for other providers who may be involved in your care as well. Documentation is critical to record what has happened, what tests were ordered, and so they are interpreted with the resulting diagnoses. These nodes have been made available for patient review but not specifically written for the patient. Important health information is always given to my patients in clinical instructions. Please review your after visit summary and our contact our clinical staff if you have any questions. Orders: Orders XR DEXA axial skeleton 1 Month Z78.0 - Asymptomatic menopausal state Coding Level of Care Code Est Pt Prev Care >65y(59465) Diagnoses Well woman exam with routine gynecological exam Z01.419 Post-menopausal Z78.0 Screening breast examination Z12.39
--- OUTSIDE RECORDS SUMMARY | 2025-03-26 15:08 | XMS_ITS | Patient Health Record ---
[facility] Address [address] [place] [address] Care Team Providers Care Special Tester Name Role Phone Jesus Potts MD Primary Care Provider Unavaila ble Black, Diana Unavailable [phone] Allergies Allergen (clinical drug ingredient) Drug/Non Drug [...] Vitamin B Complex Ac tive Probiotic Active Fine 3 Not-Taking Vitamin D Active Multivitamin Active [...] Status Risk Notes Problem Acquired hallux valgus (65053249) Hallux valgus (acquired), left foot (M20.12) Active confirmed Problem Acquired hallux valgus (19478623) Hallux valgus (acquired), right foot (M20.11) Active confirmed Plan Of Treatment Pending Test Test Name Order Date X ray : Foot, right 3V 01/01/2022 [id number] NAIL, 1-01/01/2022 [id number] Destruction, 1-14 01/01/2022 Insurance Providers Payer Name Payer Address Payer Phone Subscriber Number Group Number Insured Name Patient Relationship to Insured Coverage Start Date Coverage End Date [facility] [address] [place] [address] [phone] [id number] Romelia Cabral Self - patient is the insured Medical (General) History Medical History History ICD Code Cancer Seasonal allergies Surgical History Surgery Date(Month/Year) torn meniscus 06/2017 Broken wrist 06/2015 remove metal plate 10/2017
[2025-03-26 15:10] VITALS: BP 116/76; BMI 25.9
== END 2025-03-26 16:00 | disposition home or self-care (01) ==
LOC: HO.HWS 14:55
PROVIDERS: PCP Physician Assistant; Visit Provider Advanced Practice Midwife
DX: Z01.419 Encounter for gynecological examination (general) (routine) without abnormal findings (principal); Z78.0 Asymptomatic menopausal state; Z12.39 Encounter for other screening for malignant neoplasm of breast
CPT/HCPCS: 99397; 99459

== ENCOUNTER → 2025-03-26 14:55 | Outpatient (BNVA) | payer MEDICARE, SELFPAY | PROVIDERS: PCP Physician Assistant; Visit Provider Advanced Practice Midwife | DX: Z01.419 Encounter for gynecological examination (general) (routine) without abnormal findings (principal); Z78.0 Asymptomatic menopausal state; Z12.39 Encounter for other screening for malignant neoplasm of breast | CPT/HCPCS: 99397 ==